=== PATIENT | female | born 1955 | race Caucasian/White ===

== ENCOUNTER 2021-11-27 17:53 | Observation (INO) | payer MEDICARE, SELFPAY ==
[2021-11-27] VITALS (32 sets, daily range): BP systolic 105–186; BP diastolic 58–105; PULSE 85–121; RESP 13–30; TEMP 36.7–36.9; O2SAT 86–100; BMI 24.5
--- NOTE | ~2021-11-27 | XR_ITS ---
EXAMINATION: XR chest 1V portable DATE: 11/29/2021 07:07 INDICATION: Dyspnea TECHNIQUE: frontal view of the chest was obtained. COMPARISON: Chest radiograph dated 11/27/2021 FINDINGS: The lungs remain clear with no focal airspace opacities, pulmonary edema, pleural effusion or pneumot horax. The cardiomediastinal silhouette is normal. Visualized bones and soft tissues are unremarkable . IMPRESSION: 1. No acute cardiopulmonary disease. Reviewed, dictated and finalized at location A.
--- NOTE | ~2021-11-27 | XR_ITS ---
EXAMINATION: XR chest 2V DATE: 11/27/2021 19:49 INDICATION: Shortness of breath TECHNIQUE: PA and lateral views of the chest are obtained. COMPARISON: 10/02/2017 FINDINGS: The lungs are free of acute opacities. No pleural effusion or pneumothorax. The cardiomedia stinal silhouette is normal. There is moderate thoracic spondylosis. IMPRESSION: 1. No acute cardiopulmonary abnormality. Reviewed, dictated and finalized at location F.
--- NOTE | 2021-11-27 18:02 | ED.SOB ---
HPI - SOB/Dyspnea General Chief Complaint: Shortness of Breath/Dyspnea Stated Complaint: ambulance Time Seen by Provider: 11/27/21 18:02 Source: patient, EMS and RN notes reviewed Mode of arrival: EMS Limitations: no limitations History of Present Illness MD elicited complaint: shortness of breath Pertinent past history: COPD Onset (ago): day(s) (1) Timing: progressively worsening Severity: moderate Exacerbating factors: exertion Relieving factors: oxygen and upright position Known history of: COPD Associated symptoms: denies other symptoms Treatment prior to arrival: oxygen and bronchodilator Related Data Home Medications Medication Instructions Recorded Confirmed albuterol sulfate 90 mcg/actuation 2 puff inhalation PRN PRN 11/27/21 11/27/21 aerosol inhaler Shortness Of Breath Or Wheezing atorvastatin 40 mg tablet 40 mg PO DAILY 11/27/21 11/27/21 fluticasone 500 mcg-salmeterol 50 1 ea inhalation DAILY 11/27/21 11/27/21 mcg/dose blistr powdr for inhalation (Advair Diskus) lisinopril 10 mg tablet 10 mg PO DAILY 11/27/21 11/27/21 Allergies Allergy/AdvReac Type Severity Reaction Status Date / Time No Known Allergies Allergy Verified 11/27/21 18:44 Review of Systems Review of Systems: All systems reviewed & are unremarkable except as noted in HPI and below Constitutional: Constitutional: Denies chills and Denies fever(s) Cardiovascular: Cardiovascular: Denies chest pain and Denies rapid heart rate Respiratory: Respiratory: Reports as per HPI Gastrointestinal: Gastrointestinal: Denies heartburn, Denies diarrhea and Denies nausea Musculoskeletal: Musculoskeletal: Denies myalgias Neurologic: Denies confusion and Denies dizziness Endocrine: Endocrine: Denies excessive sweating PMFSH Past Medical History Medical History (Updated 11/27/21 @ 20:26 by Subhash Freeman MD) COPD (chronic obstructive pulmonary disease) Hyperlipidemia Hypertension Social History Social History (Updated 11/27/21 @ 20:18 by Subhash Freeman MD) Smoking status: Former smoker Exam Const: General: no acute distress, alert and ill appearing acutely Nutritional Appearance: well nourished Orientation/consciousness: patient oriented x3 Limitations: no limitations HENMT: Head: normal to inspection Ears: external ears normal Face and sinus: normal facial exam Eyes: Conjunctivae: conjunctivae normal Pupils: Equal, round and reactive pupils present EOM: EOMs intact bilaterally Neck: Neck: normal visual inspection Resp: Effort & Inspection: able to speak in complete sentences and tachypneic Auscultation: wheezes scattered wheezes, anterior and posterior and diminished lung sounds bilateral Cardio: Rate: tachycardic Rhythm: regular rhythm GI: GI Palp: Yes Soft to palpation and No Tenderness to palpation present (GI) Auscultation: normal bowel sounds Back/Spine/Pelvis: Cervical Spine: cervical ROM normal Thoracic/Lumbar Spine: thoraco-lumbar ROM normal Skin: General skin exam: normal color Rashes: no rashes Neuro: General: patient oriented x3, moves all extremities, no focal motor deficits and CN's II-XI intact bilaterally Speech: normal speech Gait exam (Neuro): Normal gait present Extrem: General: normal to inspection and no clubbing, cyanosis or edema Psych: Mental Status: mental status grossly normal Affect: normal affect Attitude: cooperative Course Course Emergency Course: patient was given DuoNeb, Solu-Medrol. She feels much better. She was titrated oxygen down to nasal cannula 5 L but when we took off for oxygen she began satting at 87%. I discussed with her admission because she is not holding her O2 saturation she agreed to admission. I discussed the case with Yvonne Vasquez APN hospitalist who agreed with admission. Vital Signs Vital signs: Vital Signs Pulse Oximetry 100 11/27/21 17:53 Oxygen Delivery Non-Rebreather Mask 11/27/21 17:53 Oxygen Flow Rate 15 11/27/21 17:53
--- NOTE | 2021-11-27 18:09 | ECG_ITS ---
Measurements Intervals [place] Rate: 95 P: 79 IA: 168 QRS: 66 QRSD: 82 T: 67 QT: 336 QTc: 424 Interpretive Statements SINUS RHYTHM BASELINE ARTIFACT NONSPECIFIC T-WAVE ABNORMALITY BORDERLINE ECG NO PREVIOUS ECG AVAILABLE FOR COMPARISON Electronically Signed On 11-28-2021 15:00:19 CDT by Sincere Walters M.D.
[2021-11-27 18:14] LABS: Basophils Absolute Auto 0.09 K/mm3 (0.00-0.10); Eosinophils Absolute Auto 0.46 K/mm3 (0.02-0.50); Eosinophils Percent Auto 5.3 % (1.0-6.0); Hematocrit 40.1 % (35.0-42.0); Hemoglobin 13.2 g/dL (11.7-13.8); Immature Granulocyte Absolute 0.03 K/mm3 (0.00-0.00); Immature Granulocyte Percent A 0.3 % (0.0-0.0); Lymphocytes Absolute Auto 1.64 K/mm3 (1.10-4.50); Mean Corpuscular HGB Conc 32.9 g/dL (32.0-36.0); Mean Corpuscular Hemoglobin 31.4 pg (27.0-31.0); Mean Corpuscular Volume 95.2 fL (78.0-102.0); Mean Platelet Volume 10.2 fl (9.2-11.8); Monocytes Absolute Auto 1.22 K/mm3 (0.10-0.90); Monocytes Percent Auto 14.1 % (2.0-11.0); Neutrophils Absolute Auto 5.2 K/mm3 (1.7-7.2); Neutrophils Percent Auto 60.3 % (50.0-70.0); Platelet Count Result 295 K/mm3 (150-420); Red Blood Count 4.21 M/mm3 (4.20-5.40); Red Cell Distribution Width 13.6 % (11.6-14.4); White Blood Count 8.6 K/mm3 (4.8-10.8)
[2021-11-27] MEDS: methylPREDNISolone SOD SUCC 125 MG VIAL IV PUSH (18:20)
--- NOTE | 2021-11-27 18:20 | PC.NURSE ---
ERP decreased o2 to 10L
[2021-11-27 18:33] LABS: Lactic Acid Reflex 1.2 mmol/L (0.4-2.0)
[2021-11-27 18:39] LABS: Alanine Aminotransferase 19 U/L (14-59); Albumin Level 4.4 g/dL (3.4-5.0); Alkaline Phosphatase 76 U/L (46-116); Anion Gap 6 mmol/L (8-16); Aspartate Amino Transferase 21 U/L (15-37); Bilirubin,Total 0.6 mg/dL (0.00-1.00); Blood Urea Nitrogen 13 mg/dL (7-18); Carbon Dioxide 30 mmol/L (21-32); Chloride 96 mmol/L (98-108); Estimated Glomerular Filt Rate > 60; Glucose 160 mg/dL (70-99); Magnesium 1.9 mg/dL (1.8-2.4); NT Pro B Type Natriuretic Pept 64 pg/mL (0-125); Osmolality Calculated 277 mOsm/kg (285-295); Potassium 4.7 mmol/L (3.5-5.1); Sodium 132 mmol/L (136-145); Total Protein 7.8 g/dL (6.4-8.2); Troponin I 33.8 ng/L (0.00-60.4)
[2021-11-27 18:40] LABS: CRP < 0.2 mg/dL (0.0-0.9)
[2021-11-27] MEDS: Please add drug allergy info to patient profile. 1 EACH XX (18:44)
--- NOTE | 2021-11-27 18:44 | PC.NURSE ---
PCR sent to lab
--- NOTE | 2021-11-27 18:50 | PC.NURSE ---
1815 report to kenneth robles. no questions or concerns.
[2021-11-27 19:23] LABS: SARS-CoV-2 RNA PCR Negative (Negative)
[2021-11-27] MEDS: IPRATROPIUM 0.5 MG/ALBUTEROL SULFATE 2.5 MG AMPUL.NEB 3 ML INHALATION (19:43)
--- NOTE | 2021-11-27 21:25 | ADMGEN ---
This patient, Shanae Cuenca, was admitted to 2nd Floor Room 208-1. Patient oriented to hospital policies and general routines including ID bracelet, bed and alarms, visiting hours, pain management, procedures, bathroom and other care routines, personal items, smoking policy, room service/diet, and visiting hours. Information on how to activate the Rapid Response Team has been discussed. Patient are encouraged to report perceived risks to care and to ask questions if they do not understand what they are told or what they should do. Patient from w/c to bedside commode and then to chair with no assistance with no assistive device with steady gait. Denies SOB/pain/discomfort. No distress noted. Call light in reach.
[2021-11-28] VITALS (16 sets, daily range): BP systolic 101–148; BP diastolic 66–81; PULSE 72–102; RESP 16–22; TEMP 36.1–37.2; O2SAT 90–95
--- NOTE | 2021-11-28 04:00 | PC.NURSE ---
Patient appears to be sleeping by the rise and fall of her chest. No SOB/distress noted. O2 turned down to 1 lpm/nc. Call light in reach.
--- NOTE | 2021-11-28 04:50 | PC.NURSE ---
Patient to/from bedside commode independently. Patient denies SOB with exertion. No SOB noted. O2 continues @ 1 lpm/nc with SpO2 @ 94%. Call light in reach.
[2021-11-28 05:36] LABS: Basophils Absolute Auto 0.01 K/mm3 (0.00-0.10); Basophils Percent Auto 0.2 % (0.0-1.0); Eosinophils Absolute Auto 0.01 K/mm3 (0.02-0.50); Eosinophils Percent Auto 0.2 % (1.0-6.0); Hematocrit 38.2 % (35.0-42.0); Hemoglobin 12.6 g/dL (11.7-13.8); Immature Granulocyte Absolute 0.02 K/mm3 (0.00-0.00); Immature Granulocyte Percent A 0.4 % (0.0-0.0); Lymphocytes Absolute Auto 0.23 K/mm3 (1.10-4.50); Lymphocytes Percent Auto 4.3 % (18.0-42.0); Mean Corpuscular Hemoglobin 31.2 pg (27.0-31.0); Mean Corpuscular Volume 94.6 fL (78.0-102.0); Mean Platelet Volume 10.1 fl (9.2-11.8); Monocytes Absolute Auto 0.08 K/mm3 (0.10-0.90); Monocytes Percent Auto 1.5 % (2.0-11.0); Neutrophils Percent Auto 93.4 % (50.0-70.0); Platelet Count Result 255 K/mm3 (150-420); Red Blood Count 4.04 M/mm3 (4.20-5.40); Red Cell Distribution Width 13.4 % (11.6-14.4); White Blood Count 5.4 K/mm3 (4.8-10.8)
[2021-11-28 05:46] LABS: Anion Gap 3 mmol/L (8-16); Blood Urea Nitrogen 11 mg/dL (7-18); Calcium 8.9 mg/dL (8.5-10.1); Carbon Dioxide 34 mmol/L (21-32); Chloride 97 mmol/L (98-108); Estimated CRCL calculation 81 ml/min; Estimated Glomerular Filt Rate > 60; Glucose 157 mg/dL (70-99); Osmolality Calculated 280 mOsm/kg (285-295); Potassium 5.5 mmol/L (3.5-5.1); Sodium 134 mmol/L (136-145)
--- NOTE | 2021-11-28 06:05 | PC.NURSE ---
Patient continues on O2 @ 1 lpm/nc. Denies SOB and none noted. Call light in reach.
[2021-11-28] MEDS: ENOXAPARIN 40 MG/0.4 ML SYRINGE SUB-Q (08:19)
[2021-11-28] MEDS: PANTOPRAZOLE SODIUM IV 40 MG VIAL IV PUSH (08:19)
--- NOTE | 2021-11-28 09:32 | PM.IMHP ---
H&P: HPI History of Present Illness Date/Time: 11/28/21 09:32 Chief Complaint: COPD Exacerbation Narrative: This is a 66-year-old female that presented to the emergency room complaining of increased shortness of breath. Patient has a past medical history of COPD, hyperlipidemia, hypertension, smoker for 44 years and still smokes, patient is on oxygen at home. Patient states that symptoms continue to get worse she had increased and the nebulizer was not working for her. Patient denied any pain still requiring more oxygen than that as needed at home she was hypertensive on admission of 186/105 with a pulse of 121 respirations at 25 patient. Patient was placed on oxygen was weaned down to 1 L prior to seeing her patient is receiving breathing treatments as well as some IV steroids, as well as IV antibiotics. Patient has remained afebrile no nausea vomiting and/or diarrhea we will continue to wean we will keep her an additional day to monitor her to see if she continues to need oxygen we will do a walk study to confirm that she is able to go home with or without oxygen. Review of Systems Review of Systems: shortness of breath All systems reviewed & are unremarkable except as noted in HPI and below PMFSH Past Medical History Medical History COPD (chronic obstructive pulmonary disease) Hyperlipidemia Hypertension Family History Family History Other Unknown family medical history Social History Social History Years smoked: 44 Smoking status: Former smoker Tobacco type: cigarettes Alcohol intake: former Substance use: never Substance use type: does not use Spiritual care concerns: No Comments At time as signature, I have reviewed and agree with nursing past medical, social, surgical and family history. Please see nursing chart for further information. There is no relevant family history pertinent to the presenting complaint. Meds Home Medications and Allergies Home Medications Medication Instructions Recorded Confirmed Type albuterol sulfate 90 mcg/actuation 2 puff inhalation PRN PRN 11/27/21 11/27/21 History aerosol inhaler Shortness Of Breath Or Wheezing atorvastatin 40 mg tablet 40 mg PO DAILY 11/27/21 11/27/21 History fluticasone 500 mcg-salmeterol 50 1 ea inhalation DAILY 11/27/21 11/27/21 History mcg/dose blistr powdr for inhalation (Advair Diskus) lisinopril 10 mg tablet 10 mg PO DAILY 11/27/21 11/27/21 History albuterol sulfate 90 mcg/actuation 1 inh inhalation QID PRN shortness 11/29/21 Rx aerosol inhaler of breath or wheezing #8.5 grams azithromycin 250 mg tablet See Rx Instructions PO .COMPLEX #6 11/29/21 Rx (Zithromax Z-Rupesh) tabs methylprednisolone 4 mg tablets in See Rx Instructions PO .COMPLEX 11/29/21 Rx a dose pack (Medrol (Rupesh)) #21 ea Allergies Allergy/AdvReac Type Severity Reaction Status Date / Time No Known Allergies Allergy Verified 11/27/21 18:44 Vital Signs Vital Signs - 24 hr 11/27/21 18:00 11/27/21 18:07 11/27/21 18:15 Temperature 98.4 F Pulse Rate 121 H 117 H 110 H Respiratory Rate 25 H 26 H 20 Blood Pressure 186/105 H Pulse Oximetry 100 100 100 Oxygen Delivery Non-Rebreather Mask Oxygen Flow Rate 15 11/27/21 18:33 11/27/21 17:53 11/27/21 19:40 Temperature Pulse Rate 95 Respiratory Rate 20 Blood Pressure Pulse Oximetry 100 100 99 Oxygen Delivery Nasal Cannula Non-Rebreather Mask Oxygen Flow Rate 5 15 3 11/27/21 19:43 11/27/21 18:30 11/27/21 18:31 Temperature Pulse Rate 96 110 H 106 H Respiratory Rate 20 30 H 17 Blood Pressure 163/104 H Pulse Oximetry 99 99 97 Oxygen Delivery Oxygen Flow Rate 3 11/27/21 18:45 11/27/21 18:46 11/27/21 19:00 Temperature Pulse Rate 108 H 106 H 99 Respiratory Rate 23 H 21 H 15 Blood
[2021-11-28 09:52] LABS: NT Pro B Type Natriuretic Pept 718 pg/mL (0-125)
[2021-11-28] MEDS: ATORVASTATIN 40 MG TABLET PO (11:09)
[2021-11-28] MEDS: methylPREDNISolone SOD SUCC 40 MG VIAL IV PUSH ×2 (11:10→17:44)
[2021-11-28] MEDS: FUROSEMIDE INJ 40 MG/4 ML VIAL IV PUSH (11:17)
[2021-11-28] MEDS: LEVALBUTEROL NEB 1.25 MG/3 ML INHALATION ×2 (14:40→22:57)
--- NOTE | 2021-11-28 15:32 | PC.NURSE ---
Grappler attempted to wean patient from 1 L O2 n/c to 0.5 L O2 n/c. One hour later, patient SPO2 was 86%. Resumed 1L O2.
[2021-11-29] VITALS (11 sets, daily range): BP systolic 128; BP diastolic 74; PULSE 0–91; RESP 16; TEMP 36.8; O2SAT 87–94
[2021-11-29] MEDS: methylPREDNISolone SOD SUCC 40 MG VIAL IV PUSH ×2 (00:44→08:47)
[2021-11-29 07:02] LABS: Eosinophils Absolute Auto 0.01 K/mm3 (0.02-0.50); Eosinophils Percent Auto 0.1 % (1.0-6.0); Hematocrit 37.2 % (35.0-42.0); Hemoglobin 12.5 g/dL (11.7-13.8); Immature Granulocyte Absolute 0.04 K/mm3 (0.00-0.00); Immature Granulocyte Percent A 0.4 % (0.0-0.0); Lymphocytes Percent Auto 3.4 % (18.0-42.0); Mean Corpuscular HGB Conc 33.6 g/dL (32.0-36.0); Mean Corpuscular Hemoglobin 31.1 pg (27.0-31.0); Mean Corpuscular Volume 92.5 fL (78.0-102.0); Mean Platelet Volume 10.4 fl (9.2-11.8); Monocytes Absolute Auto 0.59 K/mm3 (0.10-0.90); Monocytes Percent Auto 6.6 % (2.0-11.0); Neutrophils Percent Auto 89.5 % (50.0-70.0); Platelet Count Result 278 K/mm3 (150-420); Red Blood Count 4.02 M/mm3 (4.20-5.40); Red Cell Distribution Width 13.2 % (11.6-14.4); White Blood Count 8.9 K/mm3 (4.8-10.8)
[2021-11-29 07:17] LABS: Alanine Aminotransferase 19 U/L (14-59); Albumin Level 3.7 g/dL (3.4-5.0); Alkaline Phosphatase 62 U/L (46-116); Anion Gap 4 mmol/L (8-16); Aspartate Amino Transferase 31 U/L (15-37); Bilirubin,Total 0.5 mg/dL (0.00-1.00); Blood Urea Nitrogen 12 mg/dL (7-18); Calcium 8.7 mg/dL (8.5-10.1); Carbon Dioxide 32 mmol/L (21-32); Chloride 93 mmol/L (98-108); Estimated CRCL calculation 98 ml/min; Estimated Glomerular Filt Rate > 60; Glucose 155 mg/dL (70-99); Osmolality Calculated 270 mOsm/kg (285-295); Potassium 4.1 mmol/L (3.5-5.1); Sodium 129 mmol/L (136-145); Total Protein 6.8 g/dL (6.4-8.2)
--- NOTE | 2021-11-29 07:40 | PC.NURSE ---
Patient titrated down to 0.5L O2. SPO2 at 93%.
[2021-11-29] MEDS: LEVALBUTEROL NEB 1.25 MG/3 ML INHALATION ×2 (08:32→14:40)
[2021-11-29] MEDS: ENOXAPARIN 40 MG/0.4 ML SYRINGE SUB-Q (08:47)
[2021-11-29] MEDS: PANTOPRAZOLE SODIUM IV 40 MG VIAL IV PUSH (08:47)
[2021-11-29] MEDS: lisinopriL 10 MG TABLET PO (08:48)
[2021-11-29] MEDS: ATORVASTATIN 40 MG TABLET PO (08:48)
--- NOTE | 2021-11-29 11:32 | PM.DS ---
DS: Admitting Diagnosis Discharge Date 11/29/2021 Admitting Diagnosis COPD exacerbation DS: Discharge Diagnosis Discharge Diagnosis (1) Acute exacerbation of chronic obstructive airways disease: Code(s): J44.1 - Chronic obstructive pulmonary disease with (acute) exacerbation Status: Acute Assessment and Plan: nebulizer treatment Steroids oxygen antibiotic prophalatically (2) Hyperkalemia: Code(s): E87.5 - Hyperkalemia Status: Acute Assessment and Plan: resolved (3) CHF (congestive heart failure): Code(s): I50.9 - Heart failure, unspecified Status: Acute Assessment and Plan: monitor your intake andoutput (4) Kidney disease: Code(s): N28.9 - Disorder of kidney and ureter, unspecified Status: Acute Assessment and Plan: resolved (5) Hypertension: Code(s): I10 - Essential (primary) hypertension Status: Acute Assessment and Plan: monitor blood pressure administer home medication hold lisinopril today d/t elevated Potassium DS: Summary Hospital Course Reason for hospitalization: Dyspnea, Shortness of breath , Hospital Course: This is a 66-year-old female that was admitted for COPD exacerbation requiring oxygen. While here patient received IV antibiotics, IV steroids, supplemental oxygen and nebulized treatment. Patient has continued to improve has been feeling a lot better. Patient's labs were potassium 4.1, sodium 129, BUN 12, creatinine 0.040, glucose 155, RBCs 402, WBCs 8.9, hemoglobin is 12.5, [place] is 37 platelets of 278. Patient had a walk study that identified she needed 1 L of oxygen as needed especially during activity. Patient could benefit from cardiopulmonary rehab recommendations and referral has been given patient could benefit from some home health although she has declined. Oxygen has been set up to be sent home with patient. Patient has been able to eat and drink without any difficulties no nausea vomiting and/or diarrhea shortness of breath has decreased home on oral steroids, and prophylactically treating with some oral antibiotics. Time Spent with Patient Time attestation: Total time spent providing and/or coordinating discharge services: Exam Narrative: GENERALwell-appear ing, well-nourishe d, and in no acute distress. HEAD:No rmocephalic, atrau matic. EYES: PERRL A ENT:? Nares geneva r, no rhinorrhea o r epistaxis. Mucou s membranes moist. NECK:? Supple. CH EST:? course w whe ezes to auscultati on. norespiratory distress. HEART: t achycardic? Regula r rate and rhythm. ? Normal periphera l pulses. ABDOMEN: ? Soft, nontender, nondistended, nor mal active bowel s ounds. EXTREMITIES : Normal range of motion. No edema. SKIN:? Warm, dry, no rash. NEURO: No focal deficits. A lert and oriented x3. ? DS: Data Data Completed and Pending Labs on day of discharge: Labs from last 24 hours 11/29/21 11/29/21 06:50 06:50 WBC 8.9 RBC 4.02 L Hgb 12.5 Hct 37.2 MCV 92.5 MCH 31.1 H MCHC 33.6 RDW 13.2 Plt Count 278 MPV 10.4 Immature Gran % (Auto) 0.4 H Neut % (Auto) 89.5 H Lymph % (Auto) 3.4 L [place] % (Auto) 6.6 Eos % (Auto) 0.1 L Baso % (Auto) 0.0 Lymph # (Auto) 0.30 L [place] # (Auto) 0.59 Eos # (Auto) 0.01 L Baso # (Auto) 0.00 Abs Immat Gran (auto) 0.04 H Absolute Neuts (auto) 8.0 H Absolute Nucleated RBC 0.00 Nucleated RBC % 0.0 Sodium 129 L Potassium 4.1 Chloride 93 L Carbon Dioxide 32 Anion Gap 4 L BUN 12 Creatinine 0.40 L Estim Creat Clear Calc 98 Estimated GFR > 60 Glucose 155 H Calculated Osmolality 270 L Calcium 8.7 Total Bilirubin 0.5 AST 31 ALT 19 Alkaline Phosphatase 62 Total Protein 6.8 Albumin 3.7 Discharge Plan Discharge Attending physician on discharge: Shivam Curry Consulting providers: Yvonne Vasquez
--- NOTE | 2021-11-29 11:32 | WPDPN ---
Progress Note: A&P Assessment and Plan (1) Acute exacerbation of chronic obstructive airways disease: Code(s): J44.1 - Chronic obstructive pulmonary disease with (acute) exacerbation Status: Acute Assessment and Plan: nebulizer treatment Steroids oxygen antibiotic prophalatically (2) Hyperkalemia: Code(s): E87.5 - Hyperkalemia Status: Acute Assessment and Plan: replenish with oral potassium monitor level and replenish as needed (3) CHF (congestive heart failure): Code(s): I50.9 - Heart failure, unspecified Status: Acute Assessment and Plan: heart healthy diet monitor for worsening and treat IV lasix monitor BNP (4) Kidney disease: Code(s): N28.9 - Disorder of kidney and ureter, unspecified Status: Acute Assessment and Plan: Avoid Nephrotoxic medication IVF monitor for fluid overload (5) Hypertension: Code(s): I10 - Essential (primary) hypertension Status: Acute Assessment and Plan: monitor blood pressure administer home medication hold lisinopril today d/t elevated Potassium Subjective Date/time seen: 11/29/21 11:32 Exam Narrative: GENERAL:Well-appearing, well-nourished, and in no acute distress. HEAD:Normocephalic, atraumatic. EYES: PERRLA and EOMI. ENT: Nares clear, no rhinorrhea or epistaxis. Mucous membranes moist. NECK: Supple. CHEST: Clear to auscultation. No respiratory distress. HEART: Regular rate and rhythm. No murmur heard. Normal peripheral pulses. ABDOMEN: Soft, nontender, nondistended, normal active bowel sounds. EXTREMITIES: Normal range of motion. No edema. SKIN: Warm, dry, no rash. NEURO: No focal deficits. Alert and oriented x3. Objective Data Vital Signs Vital Signs: Vital Signs - 24 hr 11/28/21 12:04 11/28/21 12:24 11/28/21 14:40 Temperature 98.9 F Pulse Rate 102 H 95 72 Respiratory Rate 18 16 Blood Pressure 113/76 Pulse Oximetry 95 90 Oxygen Delivery Nasal Cannula Oxygen Flow Rate 0.5 1 11/28/21 14:54 11/28/21 16:00 11/28/21 16:00 Temperature 98.6 F Pulse Rate 86 77 77 Respiratory Rate 16 16 Blood Pressure 101/66 Pulse Oximetry 92 Oxygen Delivery Nasal Cannula Oxygen Flow Rate 1 11/28/21 20:00 11/28/21 22:59 11/28/21 23:05 Temperature Pulse Rate 74 84 85 Respiratory Rate 22 H 19 Blood Pressure Pulse Oximetry 93 93 Oxygen Delivery Oxygen Flow Rate 1 1 11/28/21 23:52 11/28/21 23:53 11/29/21 04:00 Temperature 97 F L Pulse Rate 74 74 68 Respiratory Rate 20 Blood Pressure 119/74 Pulse Oximetry 93 Oxygen Delivery Nasal Cannula Oxygen Flow Rate 1 11/29/21 07:37 11/29/21 07:37 11/29/21 08:33 Temperature 98.3 F Pulse Rate 75 77 81 Respiratory Rate 16 16 Blood Pressure 128/74 Pulse Oximetry 93 92 Oxygen Delivery Nasal Cannula Oxygen Flow Rate 0.5 1 11/29/21 08:40 Temperature Pulse Rate 82 Respiratory Rate 16 Blood Pressure Pulse Oximetry Oxygen Delivery Oxygen Flow Rate Intake/Output Intake/Output: Intake & Output 11/26/21 11/27/21 11/28/21 11/29/21 23:59 23:59 23:59 23:59 Intake Total 2580 1530 Output Total 2450 1300 Balance 130 230 Meds/Results Medications: Active Medications Generic Name Dose Route Start Last Admin Trade Name Freq PRN Reason Stop Dose Admin Acetaminophen 650 mg 11/27/21 20:45 Acetaminophen 325 Mg Tablet PO Q4H PRN Mild Pain (1-3) or Fever Atorvastatin Calcium 40 mg 11/28/21 09:00 11/29/21 08:48 Atorvastatin 40 Mg Tablet PO 40 mg DAILY PEG Administration Enoxaparin Sodium 40 mg 11/28/21 09:00 11/29/21 08:47 Enoxaparin 40 Mg/0.4 Ml Syringe SUB-Q 40 mg DAILY PEG Administration Azithromycin 250 mg/ Dextrose 250 mls @ 250 mls/hr 11/28/21 09:00 11/29/21 09:45 IVPB Infused Q24H PEG Infusion Ibuprofen 400 mg 11/27/21 20:45 Ibuprofen 400 Mg Tablet PO
--- NOTE | 2021-11-29 11:45 | PC.NURSE ---
Telemetry discontinued on patient per [employer] OPERATOR order.
--- NOTE | 2021-11-29 11:56 | HOMEO2EVAL ---
Evaluation was performed at [facility] Home Oxygen Evaluation RC: Home Oxygen (O2) Evaluation Start: 11/29/21 10:18 Freq: ONCE Status: Active Protocol: RPE Activity Type Activity Date Activity User E-sign Co-sign Detail Recorded Client Recorded Date Recorded By Document 11/29/21 10:30 KAB [id number] 11/29/21 11:52 KAB Document 11/29/21 10:55 KAB [id number] 11/29/21 11:52 KAB Document 11/29/21 10:55 KAB [id number] 11/29/21 11:52 KAB Document 11/29/21 10:56 KAB [id number] 11/29/21 11:52 KAB 11/29/21 11/29/21 11/29/21 10:30 10:55 10:55 Home O2 Evaluation [Oxygen] -Test Phase Resting Resting Exercise -Oxygen Delivery Room Air Room Air -Oxygen Flow Rate (L/min) 1 [Pulse Oximetry] -Pulse Oximetry (90-100 %) 91 89 L 87 L [Pulse Rate] -Pulse Rate (60-100 beats/min) 83 83 91 [Evaluation] -Activity Tolerance Excellent Excellent Good -Rate of Perceived Exertion (PE) 15 Hard Query Text:Click the Protocol Button to View the RPE Scale [Exercise] -Ambulation Distance (feet) -Ambulation Distance (meters) [Comments] -Home Oxygen Evaluation Comments [Charges] -Treatment Charges O2 Evaluation - Inpatient 11/29/21 10:56 Home O2 Evaluation [Oxygen] -Test Phase Exercise -Oxygen Delivery Nasal Cannula -Oxygen Flow Rate (L/min) 1 [Pulse Oximetry] -Pulse Oximetry (90-100 %) 90 [Pulse Rate] -Pulse Rate (60-100 beats/min) 91 [Evaluation] -Activity Tolerance Excellent -Rate of Perceived Exertion (PE) Query Text:Click the Protocol Button to View the RPE Scale [Exercise] -Ambulation Distance (feet) 280 -Ambulation Distance (meters) 85.33 [Comments] -Home Oxygen Evaluation Comments Patient taken off o2. Spo2 well for copd patient. Patient walked and dropped to 87. Placed on o2 at 1 liter. Patient able to maintain spo2 on 1. [Charges] -Treatment Charges
--- NOTE | 2021-11-29 15:15 | PC.NURSE ---
Patient discharged from unit at 1515. Patient left unit in w/c accompanied by nurse and family member. Personal belongings sent home with family. IV site discontinued prior to discharge. Discharge instructions explained to patient and family. Both voiced understanding. Patient left property in private vehicle.
--- NOTE | 2021-11-30 09:57 | PCCCNOTE ---
Called pt to determine if she was active with home health or if Care Coordination needed to set home health up as ANP discharged her to home health. Pt states she does not feel she needs or wants home health. ANP Yvonne Vasquez notified. Called Cardiopulmonary rehab and made referral. CC did not speak to pt about being agreeable to cardiopulmonary rehab.
--- NOTE | 2021-12-01 11:26 | PC.NURSE ---
Pt sates she received and understood her discharge instructions. Pt has no other comments.
== END 2021-11-29 15:15 | disposition home health service (06) ==
LOC: CHSED 20:26 → CHS2ND 21:03
PROVIDERS: Nurse Practitioner Family; Admitting Provider Internal Medicine; Emergency Provider Emergency Medicine; PCP Family Medicine; Visit Provider Internal Medicine
DX: J44.1 Chronic obstructive pulmonary disease with (acute) exacerbation (principal); I11.0 Hypertensive heart disease with heart failure; I50.9 Heart failure, unspecified; E87.5 Hyperkalemia; E78.5 Hyperlipidemia, unspecified; N28.9 Disorder of kidney and ureter, unspecified; Z20.822 Contact with and (suspected) exposure to COVID-19; Z87.891 Personal history of nicotine dependence; Z99.81 Dependence on supplemental oxygen
CPT/HCPCS: 36415; 71045; 71046; 80048; 80053; 83605; 83735; 83880; 84484; 85025; 85380; 86140; 93005; 94618; 94640; 96365; 96366; 96372; 96374; 96375; 96376; 99285; A9270; C9113; C9803; G0378; J0456; J1650; J1940; J2920; J2930; J7060; U0003; U0005

== ENCOUNTER 2021-12-13 19:40 | Emergency (ER) | payer MEDICARE, SELFPAY ==
[2021-12-13] VITALS (19 sets, daily range): BP systolic 93–185; BP diastolic 60–102; PULSE 77–118; RESP 16–28; TEMP 36.6–36.8; O2SAT 89–100
--- NOTE | ~2021-12-13 | XR_ITS ---
EXAMINATION: XR chest 1V portable Exam Date/Time: 12/13/2021 20:00 CDT HISTORY: COPD SOA Comparison: 11/29/2021. RESULT: Lines, tubes, and devices: None. Lungs and pleura: Clear. Cardiomediastinal silhouette: Stable. Other: No acute osseous or upper abdominal finding. IMPRESSION: No acute cardiopulmonary process. Reviewed, dictated and finalized at location [facility].
[2021-12-13] MEDS: IPRATROPIUM 0.5 MG/ALBUTEROL SULFATE 2.5 MG AMPUL.NEB 3 ML INHALATION (19:40)
--- NOTE | 2021-12-13 19:49 | ECG_ITS ---
Measurements Intervals [place] Rate: 102 P: 87 VA: 163 QRS: 69 QRSD: 79 T: 180 QT: 310 QTc: 404 Interpretive Statements POOR DATA QUALITY SINUS TACHYCARDIA NONSPECIFIC T WAVE ABN COMPARED TO ECG 11/27/2021 19:34:11 SINUS TACHYCARDIA NOW PRESENT Electronically Signed On 12-14-2021 13:03:06 CDT by Jorge Barker M.D.
[2021-12-13] MEDS: methylPREDNISolone SOD SUCC 125 MG VIAL IV PUSH (19:56)
[2021-12-13] MEDS: ALBUTEROL SULFATE NEB 2.5 MG/3 ML INH 10 MG INHALATION (20:04)
--- NOTE | 2021-12-13 20:32 | ED.SOB ---
HPI - SOB/Dyspnea General Chief Complaint: Shortness of Breath/Dyspnea Stated Complaint: ambulance Time Seen by Provider: 12/13/21 19:42 Source: patient Mode of arrival: ambulatory Limitations: no limitations History of Present Illness HPI Narrative: PATIENT IS A 66-YEAR-OLD WHITE FEMALE WITH HISTORY OF COPD WAS ADMITTED HERE November AND DISCHARGED ON 11/29 WITH COPD EXACERBATION AND STARTED ON 1 L OF OXYGEN AT HOME. SHE WAS RECOMMEND TO PULMONARY REHAB BUT SHE REFUSED. TODAY SHE COMPLAINS OF INCREASING SHORTNESS OF BREATH WITH COUGH PRODUCTIVE OF CLEAR SPUTUM. SHE DENIES ANY CHEST PAIN HER BACK PAIN ABDOMINAL PAIN NAUSEA VOMITING FEVER OR ANY OTHER PAIN. DENIES ANY SWELLING. SHE DENIES ANY HISTORY OF VENOUS THROMBOEMBOLISM SHE DENIES SMOKING. SAID SHE QUIT 3 YEARS AGO. PATIENT TOLD THE NURSE THAT HER SHORTNESS OF BREATH ACTUALLY STARTED 2 WEEKS AGO AND SHE FINISHED HER MEDICATIONS AFTER SEEING HER PRIMARY CARE PROVIDER IN THE OFFICE. Related Data Home oxygen amount: 1 liter Home Medications Medication Instructions Recorded Confirmed albuterol sulfate 90 mcg/actuation 2 puff inhalation PRN PRN 11/27/21 12/13/21 aerosol inhaler Shortness Of Breath Or Wheezing atorvastatin 40 mg tablet 40 mg PO DAILY 11/27/21 12/13/21 fluticasone 500 mcg-salmeterol 50 1 ea inhalation DAILY 11/27/21 12/13/21 mcg/dose blistr powdr for inhalation (Advair Diskus) lisinopril 10 mg tablet 10 mg PO DAILY 11/27/21 12/13/21 Allergies Allergy/AdvReac Type Severity Reaction Status Date / Time No Known Allergies Allergy Verified 12/13/21 19:54 Review of Systems Review of Systems: All systems reviewed & are unremarkable except as noted in HPI and below Constitutional: Constitutional: Reports as per HPI and Reports no additional constitutional complaints Eyes: Eyes: Reports no additional eye complaints ENT: Reports system reviewed and no additional complaints, except as documented Cardiovascular: Cardiovascular: Reports no additional cardiovascular complaints Respiratory: Respiratory: Reports as per HPI, Reports no additional respiratory complaints, Reports cough and Reports dyspnea Comments: SHE HAS BEEN SHORT OF BREATH AT REST TODAY. Gastrointestinal: Gastrointestinal: Reports no additional gastrointestinal complaints Genitourinary: Genitourinary: Reports no additional female genitourinary complaints Musculoskeletal: Musculoskeletal: Reports no additional musculoskeletal complaints Neurologic: Reports system reviewed and no additional complaints, except as documented Psychiatric: Psychiatric: Reports no additional psychiatric complaints PMFSH Past Medical History Medical History COPD (chronic obstructive pulmonary disease) Hyperlipidemia Hypertension Family History Family History Other Unknown family medical history Social History Social History Years smoked: 44 Smoking status: Former smoker Tobacco type: cigarettes Alcohol intake: former Substance use: never Substance use type: does not use Spiritual care concerns: No Exam Narrative: PATIENT IS A WHITE ELDERLY FEMALE MODERATE RESPIRATORY DISTRESS RESPIRATORY RATE OF 28 PULSE 107 BLOOD PRESSURE 170/92 TEMP 36.6? CENTIGRADE O2 SAT ON A NON-REBREATHER OF 92%. PATIENT'S ORIGINAL OXYGEN SAT ON HOME OXYGEN WAS 80%. EYES CONJUNCTIVA PINK SCLERA NONICTERIC. OROPHARYNX IS CLEAR WITH MOIST MUCOUS MEMBRANES NECK SUPPLE WITHOUT LYMPHADENOPATHY. LUNGS SHOW DECREASED BREATH SOUNDS WITH WHEEZES THROUGHOUT. HEART TACHYCARDIC WITHOUT MURMURS GALLOPS OR RUBS ABDOMEN SOFT NONTENDER NO HEPATOSPLENOMEGALY OR MASSES NO CVA TENDERNESS NO ABDOMINAL BRUITS. BACK IS NONTENDER. EXTREMITIES NO CYANOSIS CLUBBING OR EDEMA NEUROLOGICAL MOTOR AND SENSORY GROSSLY INTACT PATIENT ALERT AND ORIENT X4
[2021-12-13 20:35] LABS: Base Excess ABG -2.8 mmol/L (0-2); HCO3 ABG 29.4 mmol/L (23-29); Oxygen Content ABG 18.3 %vol (16.0-22.0); Oxygen Saturation ABG 98.7 % (95-97); Oxyhemoglobin 97.9 % (94-100); PO2 ABG 235.7 mmHg (80-90); Total Hemoglobin 12.9 g/dL (12.0-18.0)
[2021-12-13 20:39] LABS: Device NASAL CANNULA; Modified Allen's Test Pass; Site Drawn RIGHT RADIAL
[2021-12-13 20:42] LABS: PCO2 ABG 98.6 mmHg (35-45); pH ABG 7.09 (7.35-7.45)
[2021-12-13 20:46] LABS: Hematocrit 37.3 % (35.0-42.0); Hemoglobin 11.9 g/dL (11.7-13.8); Mean Corpuscular HGB Conc 31.9 g/dL (32.0-36.0); Mean Corpuscular Hemoglobin 30.8 pg (27.0-31.0); Mean Corpuscular Volume 96.6 fL (78.0-102.0); Mean Platelet Volume 9.8 fl (9.2-11.8); Platelet Count Result 333 K/mm3 (150-420); Red Blood Count 3.86 M/mm3 (4.20-5.40); Red Cell Distribution Width 13.8 % (11.6-14.4); White Blood Count 10.8 K/mm3 (4.8-10.8)
[2021-12-13 20:55] LABS: D Dimer 0.49 mg/L (0.19-0.50); Partial Thromboplastin Time 26.4 SEC (23.90-30.70)
--- NOTE | 2021-12-13 21:00 | PC.NURSE ---
Report received from Tarah Rn, pt sitting in bed, resp distress noted c labored and tachypneic respiration present. Pt being setup for Bi-pap per RT.
[2021-12-13 21:04] LABS: Alanine Aminotransferase 17 U/L (14-59); Albumin Level 3.8 g/dL (3.4-5.0); Alkaline Phosphatase 92 U/L (46-116); Anion Gap 5 mmol/L (8-16); Aspartate Amino Transferase 25 U/L (15-37); Bilirubin,Total 0.4 mg/dL (0.00-1.00); Blood Urea Nitrogen 13 mg/dL (7-18); Calcium 8.3 mg/dL (8.5-10.1); Carbon Dioxide 31 mmol/L (21-32); Chloride 101 mmol/L (98-108); Estimated CRCL calculation 74 ml/min; Estimated Glomerular Filt Rate > 60; Glucose 225 mg/dL (70-99); Magnesium 1.8 mg/dL (1.8-2.4); Osmolality Calculated 291 mOsm/kg (285-295); Potassium 4.4 mmol/L (3.5-5.1); Sodium 137 mmol/L (136-145); Total Protein 7.1 g/dL (6.4-8.2)
[2021-12-13 21:05] LABS: NT Pro B Type Natriuretic Pept 383 pg/mL (0-125)
[2021-12-13 21:07] LABS: Troponin I 89.7 ng/L (0.00-60.4)
[2021-12-13 21:26] LABS: Influenza A QL RT-PCR Negative (Negative); Influenza B QL RT-PCR Negative (Negative); SARS-CoV-2 RNA PCR Negative (Negative)
--- NOTE | 2021-12-13 21:31 | PC.NURSE ---
RT at pt bedside monitoring bipap and settings, pt resting more comfortably and pt breathing easier.
--- NOTE | 2021-12-13 21:48 | PC.NURSE ---
Pt sleeping and RR even and nonlabored at this time, on bipap and tiolerating well c RT at side to monitor.
--- NOTE | 2021-12-13 23:00 | PC.NURSE ---
Pt sleeping, awakens easily, POC for transfer explained to pt. She is agreeable to transfer, call placed to [facility] for possible transfer. Awaiting call back.
--- NOTE | 2021-12-13 23:19 | PC.NURSE ---
Call back from Dr Das, spoke c Dr Maldonado, orders received.
[2021-12-13 23:34] LABS: Base Excess ABG 1.3 mmol/L (0-2); HCO3 ABG 28.3 mmol/L (23-29); Oxygen Saturation ABG 97.3 % (95-97); Oxyhemoglobin 96.7 % (94-100); PCO2 ABG 55.7 mmHg (35-45); PO2 ABG 109.3 mmHg (80-90); Total Hemoglobin 12.4 g/dL (12.0-18.0); pH ABG 7.32 (7.35-7.45)
[2021-12-13 23:37] LABS: Device BIPAP; Expiratory Pressure 6 cmH2O; Inspiratory Pressure 18 cmH2O; Modified Allen's Test Pass; Site Drawn RIGHT RADIAL
--- NOTE | 2021-12-13 23:40 | PC.NURSE ---
Pt assisted to BSC, urinated s difficulty, VSS, back to bed and placed back on bipap. Pt tolerating well.
--- NOTE | 2021-12-13 23:48 | PC.NURSE ---
Call back to Dr Raymond, Dr Maldonado gave updated ABG's. Dr Raymond accepts for transfer, will await call back for bed placement.
[2021-12-14] VITALS: PULSE 79; RESP 26; O2SAT 98
[2021-12-14 00:01] VITALS: BP 122/76; PULSE 81; RESP 18; O2SAT 100
[2021-12-14 00:15] VITALS: PULSE 74; RESP 17; O2SAT 93
--- NOTE | 2021-12-14 00:15 | PC.NURSE ---
Call back from Mary, bed assignment given, paperwork signed for transfer.
[2021-12-14 00:16] VITALS: BP 104/72; PULSE 73; RESP 17; TEMP 36.6; O2SAT 93
--- NOTE | 2021-12-14 00:37 | PC.NURSE ---
Call placed to IMU for report, awaiting nurse to call back to give report. Pt sleeping and resting comfortably, RR even and nonlabored, VSS.
[2021-12-14 00:46] LABS: Troponin I 1328.5 ng/L (0.00-60.4)
[2021-12-14] MEDS: ASPIRIN 81 MG CHEWABLE TABLET 324 MG PO (00:54)
[2021-12-14] MEDS: ENOXAPARIN 100 MG/ML SYRINGE 70 MG SUB-Q (00:54)
[2021-12-14 01:04] VITALS: BP 107/90; PULSE 79; RESP 20; TEMP 36.6; O2SAT 97
[2021-12-14 01:05] VITALS: O2SAT 97
--- NOTE | 2021-12-14 01:33 | PC.NURSE ---
Report given to SAAS and pt. loaded s difficulty. Pt resting comfortably and reports she is feeling much better, VSS.
== END 2021-12-14 01:35 | disposition short-term general hospital (02) ==
PROVIDERS: Emergency Provider Emergency Medicine; PCP Family Medicine
DX: J44.1 Chronic obstructive pulmonary disease with (acute) exacerbation (principal); I21.4 Non-ST elevation (NSTEMI) myocardial infarction; E78.5 Hyperlipidemia, unspecified; I10 Essential (primary) hypertension; Z87.891 Personal history of nicotine dependence
CPT/HCPCS: 36415; 36600; 71045; 80053; 82805; 83735; 83880; 84484; 85027; 85380; 85610; 85730; 87040; 87502; 93005; 94640; 96365; 96372; 96375; 99285; A9270; J0696; J1650; J2930; U0003; U0005

== ENCOUNTER 2021-12-14 04:41 | Inpatient (IN) | payer MEDICARE, SELFPAY ==
[2021-12-14] VITALS (21 sets, daily range): BP systolic 121–145; BP diastolic 68–89; PULSE 69–93; RESP 16–24; TEMP 36.4–37.2; O2SAT 91–100; BMI 25.9
--- NOTE | 2021-12-14 | ECHO_ITS ---
Patient Info Name: Shanae Cuenca Age: 66 years : 1955 Gender: Female Ht: 64 in Wt: 150 lbs BSA: 1.77 m2 HR: 85 bpm BP: 138 / 78 mmHg Heart Rhythm: Sinus Rhythm Technical Quality: Fair Exam Date: 12/14/2021 2:33 PM Exam Location: [facility] Patient Status: Inpatient Admit Date: 12/14/2021 Staff Ordering Physician: Jorge Barker MD Retail Salesman: Megan King RDCS Attending Provider: Domingo Jose M.A., MD Referring Physician: Lucero HART; Exam Type: CA echo doppler color flow Study Info Indications - COPD EXACERBATION/ELEVATED TROPONIN Complete two-dimensional, color flow and Doppler transthoracic echocardiogram is performed. Summary 1. Complete two-dimensional, color flow and Doppler transthoracic echocardiogram is performed. 2. Left ventricular chamber dimension is normal. 3. Left ventricular systolic function is normal, estimated at 55-60%. 4. No regional wall motion abnormalities are seen. 5. The aortic valve is normal. 6. The mitral valve has normal leaflets. Left Ventricle Left ventricular chamber dimension is normal. Left ventricular systolic function is normal, estimated at 55-60%. The left ventricular diastolic function is grade I diastolic dysfunction. No regional wall motion abnormalities are seen. Right Ventricle Right ventricular chamber dimension is normal. Left Atria Left atrial chamber dimension is normal. Right Atria Right atrial chamber dimension is normal. Aortic Valve The aortic valve is normal. Pulmonic Valve The pulmonic valve is normal. Mitral Valve The mitral valve has normal leaflets. Tricuspid Valve The tricuspid valve leaflets are normal. There is mild tricuspid valve regurgitation. Pericardium/Pleural The pericardium appears normal. Aorta The aortic root size at the sinus of Valsalva is normal. Left Ventricular Outflow Tract Name Value Normal LVOT 2D LVOT Diameter 2.0 cm LVOT Doppler LVOT Peak Gradient 6 mmHg LVOT Mean Gradient 4 mmHg LVOT VTI 27 cm LVOT VTI/AV VTI Ratio 0.8 LVOT Stroke Volume 86 ml LVOT CO 7.0 l/min LVOT CI 3.9 l/min/m2 Pulmonic Valve Name Value Normal RVOT Doppler RVOT Peak Gradient 3 mmHg PV Doppler PV Peak Gradient 4 mmHg Mitral Valve Name Value Normal MV Doppler
--- NOTE | ~2021-12-14 | CT_ITS ---
EXAMINATION: CTA chest PE protocol DATE: 12/14/2021 09:36 INDICATION: Shortness of breath TECHNIQUE: Computed tomography angiography (CTA) of the chest was performed with 100 mL Omnipaque-350 intravenous contrast timed to evaluate the pulmonary arteries. Coronal maximum intensity projection 3D-reconstructions were created by the technologist. Automated exposure control and iterative reconst ruction technique were employed. Exam dose: 348.49 mGy-cm total exam DLP. COMPARISON: 12/13/2021 portable AP chest FINDINGS: There is an approximately 6.5 mm focal irregular opacity with some calcification in the lat eral aspect of the left upper lobe (series 4 images 34, 35). This may be a partially calcified pulmon anamaria granuloma. Small pulmonary mass lesion is not excluded. Follow-up CT imaging in 6 months is recom mended. There is mild emphysema. There are scattered predominantly peripheral pinpoint pulmonary opacities, b est demonstrated in the right upper lobe, most likely benign. There is mild bilateral lower lobe pred ominantly dependent atelectasis. No pulmonary consolidation. There is diagnostic contrast enhancement of the pulmonary arteries and no evidence of pulmonary embol ism. No thoracic aortic aneurysm or dissection. Normal heart size. Coronary artery calcifications. No cedric cardial or pleural effusion. Small sliding hiatal hernia. IMPRESSION: Approximately 6.5 mm indeterminate irregular opacity, left upper lobe, with focal calcif ication; follow-up CT thorax imaging in 6 months is recommended No evidence of pulmonary embolism Mild emphysema Minimal primarily dependent bilateral lobe atelectasis Dr. Peters telephoned the report to [facility] nurse Justin, with emphasis upon the necessity for the patient to have a follow up CT thorax in 6 months to evaluate the left upper lobe opacity. Reviewed, dictated and finalized at Location [facility]. Reviewed, dictated and finalized at location A. IMPRESSION: Approximately 6.5 mm indeterminate irregular opacity, left upper l obe, with focal calcification; follow-up CT thorax imaging in 6 months is recom mended No evidence of pulmonary embolism Mild emphysema Minimal primarily dependent bilateral lobe atelectasis Dr. Peters telephoned the report to IMU nurse Margoth, with emphasis upon the nec essity for the patient to have a follow up CT thorax in 6 months to evaluate th e left upper lobe opacity.
--- NOTE | ~2021-12-14 | NM_ITS ---
EXAMINATION: NM aditya stress w perfusion DATE: 12/15/2021 12:53 INDICATION: Elevated troponin TECHNIQUE: Rest images were obtained following intravenous administration of 10.0 mCi Tc99m tetrofosm in (Myoview). The patient was infused intravenously with Lexiscan (Regadenoson). Then, 31.77 mCi Tc99 m tetrofosmin (Myoview) was administered intravenously, and stress images were obtained. Data was rec onstructed into short axis and horizontal and vertical long axis SPECT images. Gated SPECT images wer e also obtained. COMPARISON: None. FINDINGS: There is no definite reversible or fixed perfusion abnormality to suggest ischemia or infar ction. There is normal left ventricular chamber size, wall motion and ejection fraction. Left ventr icular ejection fraction measures 64%. IMPRESSION: 1. Normal myocardial perfusion at rest and during stress. 2. Left ventricular ejection fraction measuring 64%. Reviewed, dictated and finalized at location B.
--- NOTE | 2021-12-14 02:26 | PM.IMHP ---
H&P: HPI History of Present Illness Date/Time: 12/14/21 02:26 Chief Complaint: 89 years old female with past medical history of hypertension COPD presented to the hospital with shortness of breath worsening with activity severe specially for the past few days associated with cough and wheezing patient denies fever or chill chest pain at the ER patient was found to have acute hypoxemic hypercapnic respiratory failure pH was 7 CO2 was 98 patient was started on BiPAP nebulizer treatment steroid antibiotics chest x-ray was negative patient condition improved on BiPAP patient currently on 2 L of oxygen shortness of breath has significantly improved Patient also found to have mildly elevated troponin EKGs shows T-wave inversion in lateral leads cardiology was consulted Review of Systems Review of Systems: Twelve system review was done negative except above [facility] Past Medical History Medical History COPD (chronic obstructive pulmonary disease) Hyperlipidemia Hypertension Family History Family History Other Unknown family medical history Social History Social History Years smoked: 44 Smoking status: Former smoker Tobacco type: cigarettes Alcohol intake: former Substance use: never Substance use type: does not use Spiritual care concerns: No Meds Home Medications and Allergies Home Medications Medication Instructions Recorded Confirmed Type albuterol sulfate 90 mcg/actuation 2 puff inhalation PRN PRN 11/27/21 12/13/21 History aerosol inhaler Shortness Of Breath Or Wheezing atorvastatin 40 mg tablet 40 mg PO DAILY 11/27/21 12/13/21 History fluticasone 500 mcg-salmeterol 50 1 ea inhalation DAILY 11/27/21 12/13/21 History mcg/dose blistr powdr for inhalation (Advair Diskus) lisinopril 10 mg tablet 10 mg PO DAILY 11/27/21 12/13/21 History albuterol sulfate 90 mcg/actuation 1 inh inhalation QID PRN shortness 11/29/21 12/13/21 Rx aerosol inhaler of breath or wheezing #8.5 grams Allergies Allergy/AdvReac Type Severity Reaction Status Date / Time No Known Allergies Allergy Verified 12/13/21 19:54 Exam Narrative: GENERAL: Well appearing, well-nourished, non-toxic, in no acute distress. HEAD: Normocephalic, atraumatic. NECK: Supple. No adenopathy, no masses. RESPIRATORY: Bilateral wheeze. CARDIOVASCULAR: Regular rate and rhythm without murmurs, rubs, or gallops. Peripheral pulses 2+ and equal bilaterally. ABDOMINAL: Soft, nontender, nondistended, no hepatosplenomegaly. Normoactive BS. MUSCULOSKELETAL: Mild lower extremity edema SKIN: Positive bruises from fall to the left leg NEURO: A&O X3. Speech clear. Cranial nerves II-XII grossly intact. Steady gait. No ataxic movements. PSYCHIATRIC: Appropriate mood and affect. Normal interaction. Assessment and Plan Assessment and plan (1) Hypertension: Code(s): I10 - Essential (primary) hypertension Status: Acute Assessment and Plan: On admission patient had hypertensive urgency resolved Pending home medication (2) CHF (congestive heart failure): Code(s): I50.9 - Heart failure, unspecified Status: Acute Assessment and Plan: Probably diastolic stable BMP chest x-ray clear no evidence of pulmonary edema (3) Acute exacerbation of chronic obstructive airways disease: Code(s): J44.1 - Chronic obstructive pulmonary disease with (acute) exacerbation Status: Acute Assessment and Plan: Nebulizer treatment IV Solu-Medrol IV Rocephin (4) Acute hypercapnic respiratory failure: Code(s): J96.02 - Acute respiratory failure with hypercapnia Status: Acute Assessment and Plan: Secondary to COPD exacerbation Associated with hypoxia Status post BiPAP Nebulizer treatment steroid antibiotics (5) Elevated troponin:
[2021-12-14 02:49] LABS: Alveolar/Arterial O2 Gradient 60.2 mmHg; Carboxyhemoglobin 0.3 % THb (0-2.0); Fractional Inspired Oxygen 28 %; HCO3 ABG 25.4 mEq/l (22.0-26.0); Methemoglobin ABG 0.1 %THb (0-1.5); Oxygen Content ABG 17.1 %vol (16.0-22.0); Oxygen Saturation ABG 96.5 % (95.0-100.0); Oxyhemoglobin 95.3 % THb (90.0-100.0); PO2 ABG 87.5 mmHg (80.0-100.0); PO2 FiO2 Ratio Arterial Blood 3.13 %; Reduced Hemoglobin 4.3 %THb (0-5.0); Total Hemoglobin 12.7 g/dL (12.0-18.0); pH ABG 7.379 (7.350-7.450)
--- NOTE | 2021-12-14 02:49 | ADMGEN ---
This patient, Shanae Cuenca, was admitted to IMU Room 212-01 as a direct admit from [facility] on 12/14/21 at 0209. Patient/family oriented to hospital policies and general routines including ID bracelet, bed and alarms, visiting hours, pain management, procedures, bathroom and other care routines, personal items, smoking policy, room service/diet, and visiting hours. Information on how to activate the Rapid Response Team has been discussed. Patient/Family are encouraged to report perceived risks to care and to ask questions if they do not understand what they are told or what they should do.
[2021-12-14 02:52] LABS: Device NASAL CANNULA; Modified Allen's Test Pass; Site Drawn RIGHT RADIAL
[2021-12-14] MEDS: SODIUM CHLORIDE 0.9% IV 1,000 ML 75 ML IV CONT (03:57)
[2021-12-14 06:13] LABS: Cholesterol 174 mg/dL (0-200); Triglycerides 52 mg/dL (<150)
[2021-12-14 06:17] LABS: HDL Direct 127 mg/dL; LDL Cholesterol Direct < 30 mg/dL
[2021-12-14] MEDS: methylPREDNISolone SOD SUCC 40 MG VIAL IV PUSH ×3 (06:50→21:44)
[2021-12-14] MEDS: ATORVASTATIN 40 MG TABLET PO (08:30)
[2021-12-14] MEDS: guaiFENesin 12 HR 600 MG TABCR PO ×2 (08:30→20:48)
[2021-12-14] MEDS: ENOXAPARIN 40 MG/0.4 ML SYRINGE SUB-Q (08:30)
[2021-12-14] MEDS: ALBUTEROL SULFATE NEB 2.5 MG/3 ML INH INHALATION ×3 (09:02→21:14)
[2021-12-14] MEDS: FLUTICASONE/SALMETEROL 230-21 MCG INHALER 1 PUFF 2 PUFF INHALATION ×2 (09:02→21:15)
[2021-12-14] MEDS: IPRATROPIUM BR 0.02% INH SOLN 0.5 MG/2.5 ML VIAL INHALATION ×3 (09:02→21:15)
[2021-12-14] MEDS: ASPIRIN 81 MG ENTERIC TABLET PO (09:50)
--- NOTE | 2021-12-14 11:32 | PM.CNCAR ---
Assessment and Plan Assessment and plan (1) Elevated troponin: Code(s): R77.8 - Other specified abnormalities of plasma proteins Status: Acute Plan This is a 66-year-old woman who appears to have significant COPD who presented yesterday to the emergency room in [place] with significant COPD exacerbation. She did have relatively severe acute respiratory acidosis. No active chest pain symptoms troponin levels were sampled in that setting and we are moderately elevated. One would presume this is a so-called type 2 infarction with functional ischemia related to hypoxia/respiratory acidosis. She describes having had a coronary angiogram done within the last 5 or 6 years up in [place] and it sounds like she was told of angiographically mild disease for which aspirin and atorvastatin was recommended/prescribed. I am going to recommend echocardiogram today to determine if there are any ischemic wall motion abnormalities. We will likely proceed with a Lexiscan nuclear stress test tomorrow if the stress echo does not show any wall motion abnormalities. At this point she is not having any active ischemic symptoms that would prompt me to make the decision to return her to the cardiac catheterization technician here at [facility]. That of course could be reconsidered if the echocardiogram demonstrates ischemic findings. Jorge Barker MD [facility] History of Present Illness History of Present Illness Consult date/time: 12/14/21 11:32 Reason For Visit: COPD Exacerbation Narrative: This is a 66-year-old woman I am seeing at the request of the hospitalist because of elevated troponin level. She is unknown to me prior to this consultation. She seems to be a good historian. She states that she is known to have significant COPD with home oxygen requirements. She has been having worsening shortness of breath for several days at home it became severe yesterday she had her call an ambulance and she was brought to the emergency room in [place]. When she was evaluated there her blood gases were remarkable for a severe respiratory acidosis and her troponin levels were elevated. Her electrocardiogram showed sinus rhythm with some nonspecific ST and T-wave changes. She was transferred here for further evaluation and management. Her troponin levels here are also moderately elevated the pattern is relatively flat. She feels comfortable this morning and denies any active complaints she has been treated with bronchodilators and steroids since admission to the hospital. With respect to heart disease she says that she was found to have mild coronary artery disease approximately 5 or 6 years ago when her physician referred her for some reason to a sr account executive up in [place]. She can not remember the reason for the referral but she does remember having a coronary angiogram done in being told of mild coronary disease. Aspirin and atorvastatin was recommended for this. She has not followed with a sr account executive since that evaluation. Once again she is not reporting any symptoms of chest pain pressure or heaviness she not experiencing orthopnea PND or accumulating edema. Review of Systems Constitutional: Constitutional: Reports lethargy Eyes: Eyes: Reports no additional eye complaints ENT: Reports system reviewed and no additional complaints, except as documented Cardiovascular: Cardiovascular: Reports no additional cardiovascular complaints Respiratory: Respiratory: Reports cough and Reports dyspnea Gastrointestinal: Gastrointestinal: Reports no additional gastrointestinal complaints Musculoskeletal: Musculoskeletal: Reports no additional musculoskeletal complaints Integumentary/Breasts: Skin/Breast: Reports system reviewed and no additional complaints, except as docu Neurologic: Reports system reviewed and no additional complaints, except as documented Endocrine: Endocrine: Reports no additional endocrine complaints Hematologic/Lymphatic: Hematologic/Lymphat
--- NOTE | 2021-12-14 14:44 | PM.IMPN ---
Progress Note: A&P Assessment and Plan (1) Acute hypercapnic respiratory failure: Code(s): J96.02 - Acute respiratory failure with hypercapnia Status: Acute Assessment and Plan: Patient presents to the ED with complaints of SOB and productive cough. She was noted to be in moderate respriatory distress with hypoxia. ABG 7.09/99/235 on 7L NC. CXR was clear. Influenza and COVID were negative. She was treated with Solu-medrol, Nebs and abx. BiPAP started and repeat ABG showing 7.32/56/109 on bipap. Respiratory failure secondary to COPD exacerbation. She was transferred to [place]. ABG here was normal on 2L. CTA chest showing no PE but does show a 6.5mm EDITH mass, mild emphysema and atelectasis. Continue steroids, nebs and abx. Apnea link tonight (2) Elevated troponin: Code(s): R77.8 - Other specified abnormalities of plasma proteins Status: Acute Assessment and Plan: Troponin elevated and climbed to 2.4. EKG showing no acute findings. Most likely NSTEMI type 2 secondary to demand ischemia from the severe respiratory failure. Continue ASA. Cardiology consulted and appreciate their input. Echo ordered. Plan for Lexiscan tomorrow if Echo okay. (3) Acute exacerbation of chronic obstructive airways disease: Code(s): J44.1 - Chronic obstructive pulmonary disease with (acute) exacerbation Status: Acute Assessment and Plan: As above. Continue steroids, nebulizer treatments and antibiotics. Will changed to Levaquin (4) Hypertension: Code(s): I10 - Essential (primary) hypertension Status: Acute Assessment and Plan: Patient's blood pressure was reviewed on 12/14 Blood pressure remains well controlled. Will continue current medications. (5) CHF (congestive heart failure): Code(s): I50.9 - Heart failure, unspecified Status: Acute Assessment and Plan: Patient denies any history of heart failure. Chest x-ray is clear. (6) Tobacco abuse: Code(s): Z72.0 - Tobacco use Status: Acute Assessment and Plan: Patient quit tobacco 2 years ago but continues to smoke periodically. She was educated about the benefits of smoking cessation. (7) Lung nodule: Code(s): R91.1 - Solitary pulmonary nodule Status: Acute Assessment and Plan: As above. CT scan showng 6.5mm nodule in the EDITH. Plan for further surveillance as outpatient. Subjective Date/time seen: 12/14/21 14:44 Interval history: 66yo female with HTN, COPD here for SOB. Patient denies any history of CHF or coronary disease. She does have COPD and was just discharged recently for COPD exacerbation. She has been having wheezing coughing. She quit tobacco 2 years ago but still smokes on occasion. She denies any chest pain. She states that she had a CT scan of her chest a few years ago at a different facility and this also showed a small lung mass that is being followed. Exam Narrative: AF 98.4 136/68 82 16 95% 2L Gen - NARD Chest - few end expiratory rhonchi anteriorly o/w clear bilaterally, nml RR, good AE CV - RRR S1/S2. Tele showing no significant dysrhythmias Abd - Soft, NT/ND, Positive BS Ext - No pedal edema Psych - Nml mood and affect Skin - Warm and dry. bruising and dried eschar noted to the left lower leg with bruising extending into the ankle/foot. no pain to palpation. Objective Data Vital Signs Vital Signs: Vital Signs - 24 hr 12/14/21 02:14 12/14/21 02:14 12/14/21 03:35 Temperature 98.9 F Pulse Rate 88 88 Respiratory Rate 24 H 24 H Blood Pressure 124/84 Pulse Oximetry 97 97 99 Oxygen Delivery Nasal Cannula Nasal Cannula Oxygen Flow Rate 2 2 12/14/21 02:29 12/14/21 04:00 12/14/21 04:00 Temperature Pulse Rate 84 81 81 Respiratory Rate 20 Blood Pressure Pulse Oximetry 98 Oxygen Delivery Nasal Cannula Oxygen Flow Rate 2 12/14/21 05:00 12/14/21 08:00 12/14/21 09:00 T
[2021-12-14] MEDS: levoFLOXacin 750 MG TABLET PO (17:25)
[2021-12-14 17:38] LABS: Glucose Point of Care 167 mg/dl (65-105)
[2021-12-14 20:53] LABS: Glucose Point of Care 149 mg/dl (65-105)
--- NOTE | 2021-12-14 21:23 | PCRCNOTE ---
pt is refusing apnea link study on 12/14. when RT stated that the MD would like to do a sleep study, pt stated what? no! i have never had any trouble with my sleep, i doubt my insurance will cover this, i am supposed to be relaxing and this is too much.
[2021-12-15] VITALS (17 sets, daily range): BP systolic 118–141; BP diastolic 65–77; PULSE 69–102; RESP 16–20; TEMP 36.1–36.8; O2SAT 69–97
--- NOTE | 2021-12-15 | EST_ITS ---
Patient Info Name: Shanae Cuenca Age: 66 years : 1955 Gender: Female Ht: 64 in Wt: 150 lbs BSA: 1.77 m2 Exam Date: 12/15/2021 11:54 AM Exam Location: [facility] Stress Patient Status: Inpatient Admit Date: 12/14/2021 Staff Ordering Physician: Jorge Barker MD Attending Provider: Domingo Jose M.A., MD Exercise Technologist: Megan King RDCS Exercise Physician: Rocio Yan MD Exam Type: CA stress aditya w NM Study Info Indications - TROPONINS A regadenoson stress test was performed. Summary 1. Please correlate with nuclear medicine images, reported separately. 2. No abnormal ST-T wave changes with lexiscan. Protocol: Lexiscan Stress ECG Details Stage: REST Duration (min): 0 min : 58 sec HR (bpm): 70 SBP (mmHg): 134 DBP (mmHg): 76 Stage: REST Duration (min): 7 min : 56 sec HR (bpm): 70 SBP (mmHg): 134 DBP (mmHg): 76 Stage: STAGE 1 Duration (min): 0 min : 59 sec HR (bpm): 101 SBP (mmHg): 125 DBP (mmHg): 63 Stage: RECOVERY Duration (min): 1 min : 0 sec HR (bpm): 96 SBP (mmHg): 125 DBP (mmHg): 63 Stage: RECOVERY Duration (min): 2 min : 0 sec HR (bpm): 94 SBP (mmHg): 125 DBP (mmHg): 63 Stage: RECOVERY Duration (min): 3 min : 0 sec HR (bpm): 85 SBP (mmHg): 124 DBP (mmHg): 64 Stage: RECOVERY Duration (min): 3 min : 47 sec HR (bpm): 90 SBP (mmHg): 124 DBP (mmHg): 64 Rest HR: 70 bpm Peak HR: 101 bpm Rest Sys BP: 134 mmHg Peak Sys BP: 125 mmHg Max Pred HR: 155 bpm % Max Pred HR: 65 % Target HR: 132 bpm Max RPP: 12,625 bpm*mmHg Total Time: 1 min : 0 sec Rest Black BP: 76 mmHg Peak Black BP: 63 mmHg Total Dose: 0.4 mg Resting ECG Sinus rhythm. T-wave inversions in the inferolateral leads. Stress ECG Sinus tachycardia. No ST-T wave changes diagnostic of ischemia. Arrhythmias None. Report Signatures
[2021-12-15] MEDS: ALBUTEROL SULFATE NEB 2.5 MG/3 ML INH INHALATION ×3 (02:54→14:50)
[2021-12-15] MEDS: IPRATROPIUM BR 0.02% INH SOLN 0.5 MG/2.5 ML VIAL INHALATION ×3 (02:55→14:50)
[2021-12-15 05:34] LABS: Eosinophils Percent Auto 0.1 % (0-4.4); Hemoglobin 11.2 g/dL (12.0-15.0); Immature Granulocyte Absolute 0.05 K/mm3 (0.00-0.031); Immature Granulocyte Percent A 0.6 % (0-0.5); Lymphocytes Absolute Auto 0.17 K/mm3 (0.9-3.2); Mean Corpuscular HGB Conc 32.9 g/dl (32-36); Mean Corpuscular Hemoglobin 31.1 pg (26-34); Mean Corpuscular Volume 94.4 fl (80-100); Mean Platelet Volume 10.2 fl (7.4-10.4); Monocytes Absolute Auto 0.7 K/mm3 (0.1-0.6); Monocytes Percent Auto 8.3 % (2.6-8.5); Neutrophils Absolute Auto 7.9 K/mm3 (1.3-6.7); Neutrophils Percent Auto 89.1 % (45.5-73.1); Platelet Count Result 281 k/mm3 (150-375); Red Cell Distribution Width 13.9 % (11.5-14.5); White Blood Count 8.9 K/mm3 (4.5-10.0)
[2021-12-15 05:38] LABS: Lymphocytes Percent Auto 1.9 % (18.3-44.2)
[2021-12-15] MEDS: methylPREDNISolone SOD SUCC 40 MG VIAL IV PUSH ×2 (05:44→13:10)
[2021-12-15 05:46] LABS: Alanine Aminotransferase 17 U/L (6-35); Albumin Level 4.1 g/dL (3.5-5.1); Alkaline Phosphatase 63 U/L (38-126); Anion Gap 13 mmol/L (8-16); Aspartate Amino Transferase 67 U/L (14-36); Bilirubin,Total 0.4 mg/dL (0.2-1.3); Blood Urea Nitrogen 13 mg/dL (7-17); Calcium 8.6 mg/dL (8.4-10.2); Carbon Dioxide 26 mmol/L (22-30); Chloride 91 mmol/L (98-107); Estimated CRCL calculation 98 ml/min; Estimated Glomerular Filt Rate > 60; Glucose 134 mg/dL (65-110); Sodium 130 mmol/L (137-145)
[2021-12-15 05:54] LABS: Hemoglobin A1C 6.1 % (<5.7)
[2021-12-15 08:29] LABS: Glucose Point of Care 134 mg/dl (65-105)
[2021-12-15] MEDS: FLUTICASONE/SALMETEROL 230-21 MCG INHALER 1 PUFF 2 PUFF INHALATION (08:29)
[2021-12-15] MEDS: levoFLOXacin 750 MG TABLET PO (13:10)
[2021-12-15] MEDS: ATORVASTATIN 40 MG TABLET PO (13:10)
[2021-12-15] MEDS: guaiFENesin 12 HR 600 MG TABCR PO (13:10)
[2021-12-15] MEDS: ASPIRIN 81 MG ENTERIC TABLET PO (13:10)
[2021-12-15] MEDS: ENOXAPARIN 40 MG/0.4 ML SYRINGE SUB-Q (13:10)
[2021-12-15 13:26] LABS: Glucose Point of Care 111 mg/dl (65-105)
--- NOTE | 2021-12-15 16:15 | PM.PNCARD ---
Progress Note: A&P Assessment and Plan (1) Elevated troponin: Code(s): R77.8 - Other specified abnormalities of plasma proteins Status: Acute Assessment and Plan: Elevated troponins, no segmental wall motion abnormalities, EKG changes. Lexiscan stress test negative for ischemia Elevated troponins secondary to nonischemic myocardial injury due to hypoxia, acidosis, work of breathing etc. No further cardiac evaluation needed Continue aspirin and atorvastatin Okay for discharge when okay with hospitalists (2) Acute exacerbation of chronic obstructive airways disease: Code(s): J44.1 - Chronic obstructive pulmonary disease with (acute) exacerbation Status: Acute Assessment and Plan: Acute on chronic COPD with hypoxic respiratory failure. Much improved. Subjective Date/time seen: Follow-up for elevated troponins (2.4), shortness of breath, COPD exacerbation. Date of service 12/15/21 16:15: Patient feeling much better, hopes to go home today. Still on 2 L O2, but she is on home O2 as well.. Echo showed normal LV function with no segmental wall motion abnormalities. Lexiscan showed no defects, EF 64% Review of Systems Review of Systems: No chest pain, breathing is much better, no stomach problems, dizziness, edema. Exam Const: General: cooperative, healthy appearing and comfortable; No confusion Orientation/consciousness: oriented to person, patient oriented x3 and No confusion HENMT: Mouth: Yes moist mucous membranes Eyes: EOM: EOMs intact bilaterally Neck: Neck: supple and no JVD Resp: Effort & Inspection: normal respiratory effort Auscultation: clear to auscultation bilaterally Cardio: Rate: regular rate Rhythm: regular rhythm Heart sounds: no murmurs GI: Inspection: normal to inspection GI Palp: No abdominal tenderness Skin: General skin exam: no rashes or lesions noted Neuro: General: oriented to person, patient oriented x3 and No confusion Extrem: Right lower extremity: no edema Left lower extremity: no edema Psych: Appearance: grossly normal Mental Status: mental status grossly normal Objective Data Vital Signs Vital Signs: Vital Signs - 24 hr 12/14/21 17:33 12/14/21 19:21 12/14/21 21:17 Temperature 98.5 F Pulse Rate 93 80 78 Respiratory Rate 16 16 Blood Pressure 134/77 Pulse Oximetry 91 Oxygen Delivery Oxygen Flow Rate 12/14/21 21:18 12/14/21 21:29 12/14/21 20:00 Temperature Pulse Rate 81 77 Respiratory Rate 16 Blood Pressure Pulse Oximetry 98 Oxygen Delivery Nasal Cannula Oxygen Flow Rate 1 12/14/21 20:00 12/14/21 23:52 12/15/21 00:00 Temperature 97.6 F Pulse Rate 79 70 Respiratory Rate 20 Blood Pressure 145/89 H Pulse Oximetry 96 95 Oxygen Delivery Nasal Cannula Oxygen Flow Rate 2 12/15/21 02:58 12/15/21 03:07 12/15/21 04:00 Temperature Pulse Rate 77 82 102 H Respiratory Rate 16 16 Blood Pressure Pulse Oximetry Oxygen Delivery Oxygen Flow Rate 12/15/21 04:00 12/15/21 04:00 12/15/21 06:00 Temperature 98 F Pulse Rate 80 71 Respiratory Rate 20 Blood Pressure 132/77 Pulse Oximetry 95 96 Oxygen Delivery Nasal Cannula Oxygen Flow Rate 2 12/15/21 08:27 12/15/21 08:30 12/15/21 08:37 Temperature Pulse Rate 70 73 Respiratory Rate 16 16 Blood Pressure Pulse Oximetry 97 Oxygen Delivery Nasal Cannula Oxygen Flow Rate 1 12/15/21 08:00 12/15/21 08:00 12/15/21 08:00 Temperature 97 F L Pulse Rate 72 69 Respiratory Rate 18 Blood Pressure 141/76 H Pulse Oximetry 97 94 Oxygen Delivery Nasal Cannula Oxygen Flow Rate 2 12/15/21 10:00 12/15/21 13:06 12/15/21 13:25 Temperature 98.3 F Pulse Rate 70 98 Respiratory Rate 18 Blood Pressure 137/72 Pulse Oximetry 69 L 94 Oxygen Delivery Nasal Cannula Oxygen Flow Rate 2 12/15/21 14:00 12/15/21 14:51 12/15/21 15:00 Temperature Pulse Rate
[2021-12-15 16:34] LABS: Glucose Point of Care 148 mg/dl (65-105)
--- NOTE | 2021-12-15 18:06 | PM.DS ---
DS: Admitting Diagnosis Discharge Date 12/15/21 Admitting Diagnosis Shortness of breath DS: Discharge Diagnosis Discharge Diagnosis (1) Acute hypercapnic respiratory failure: Code(s): J96.02 - Acute respiratory failure with hypercapnia Status: Acute (2) Elevated troponin: Code(s): R77.8 - Other specified abnormalities of plasma proteins Status: Acute (3) Acute exacerbation of chronic obstructive airways disease: Code(s): J44.1 - Chronic obstructive pulmonary disease with (acute) exacerbation Status: Acute (4) Hypertension: Code(s): I10 - Essential (primary) hypertension Status: Acute (5) CHF (congestive heart failure): Code(s): I50.9 - Heart failure, unspecified Status: Acute (6) Tobacco abuse: Code(s): Z72.0 - Tobacco use Status: Acute (7) Lung nodule: Code(s): R91.1 - Solitary pulmonary nodule Status: Acute DS: Summary Hospital Course Reason for hospitalization: 66yo female with HTN, COPD here for SOB. Please see H&P for details Hospital Course: Patient presents to the ED with complaints of SOB and productive cough. She was noted to be in moderate respriatory distress with hypoxia. ABG 7.09/99/235 on 7L NC. CXR was clear.? Influenza and COVID were negative.? She was treated with Solu-medrol, Nebs and abx. BiPAP started and repeat ABG showing 7.32/56/109 on bipap. Respiratory failure secondary to COPD exacerbation. She was transferred to [place]. ABG here was normal on 2L. CTA chest showing no PE but does show a 6.5mm EDITH mass, mild emphysema and atelectasis. Patient refused Apnea link. Sputum was clear so started on abx but CT showing no infiltrates so abx stopped. Troponin elevated and climbed to 2.4. EKG showing no acute findings and no change from prior. Elevated Trop due to NSTEMI type 2 secondary to demand ischemia from the severe respiratory failure. Cardiology consulted and patient underwent a Lexiscan stress test. Stress test showed normal myocardial perfusion at rest and during stress with LVEF 64%. Echo showing EF 55-60% and Grade i diastolic dysfunction. Patient quit tobacco 2 years ago but continues to smoke periodically.? She was educated about the benefits of smoking cessation. Sodium noted and probably within her baseline. CT scan showing 6.5mm nodule in the EDITH. Plan for further surveillance as outpatient. She overall did well and was able to be discharged home on 12/15/21. Status at Discharge Cognitive/behavioral status at discharge: Stable Time Spent with Patient Time attestation: Total time spent providing and/or coordinating discharge services: 32 minutes Time spent: Greater than 30 minutes Exam Narrative: AF 98.1 118/65 78 20 94% 2L Gen - NARD Chest -distant but clear BS. nml RR CV - RRR S1/S2. Tele showing no significant dysrhythmias Abd - Soft, NT/ND, Positive BS Ext - No pedal edema Psych - Nml mood and affect Skin - Warm and dry. DS: Data Data Completed and Pending Labs on day of discharge: Labs from last 24 hours 12/15/21 12/15/21 12/15/21 16:30 13:22 08:01 WBC RBC Hgb Hct MCV MCH MCHC RDW Plt Count MPV Immature Gran % (Auto) Neut % (Auto) Lymph % (Auto) [place] % (Auto) Eos % (Auto) Baso % (Auto) Lymph # (Auto) [place] # (Auto) Eos # (Auto) Baso # (Auto) Abs Immat Gran (auto) Absolute Neuts (auto) Absolute Nucleated RBC Nucleated RBC % Sodium Potassium Chloride Carbon Dioxide Anion Gap BUN Creatinine Estim Creat Clear Calc Estimated GFR Glucose POC Capillary Glucose 148 H 111 H 134 H Hemoglobin A1c Calcium Total Bilirubin AST ALT Alkaline Phosphatase Total Protein Albumin TSH (Reflex) 12/15/21 12/15/21 12/15/21 05:10 05:10 05:10 WBC RBC Hgb Hct MCV MCH MCHC RDW Plt Count
== END 2021-12-15 19:23 | disposition home or self-care (01) | DRG 189 ==
PROVIDERS: Admitting Provider Internal Medicine; PCP Family Medicine; Visit Provider Internal Medicine
DX: J96.02 Acute respiratory failure with hypercapnia (principal); I21.A1 Myocardial infarction type 2; I50.32 Chronic diastolic (congestive) heart failure; J96.01 Acute respiratory failure with hypoxia; J43.9 Emphysema, unspecified; I11.0 Hypertensive heart disease with heart failure; E78.5 Hyperlipidemia, unspecified; F17.210 Nicotine dependence, cigarettes, uncomplicated; R91.1 Solitary pulmonary nodule; Z79.82 Long term (current) use of aspirin; Z99.81 Dependence on supplemental oxygen
CPT/HCPCS: 36415; 36600; 71275; 78452; 80053; 80061; 82375; 82805; 82948; 83036; 83050; 84443; 84484; 85025; 93017; 93306; 94640; A9270; A9502; J1650; J2785; J2920; J7030; Q9967

== ENCOUNTER 2022-01-09 17:52 | Emergency (ER) | payer MEDICARE, SELFPAY ==
--- NOTE | ~2022-01-09 | XR_ITS ---
EXAMINATION: XR chest 1V portable Exam Date/Time: 01/09/2022 18:20 BRIM PLATER HISTORY: sob, known copd Comparison: 12/13/2021. RESULT: Lines, tubes, and devices: None. Lungs and pleura: Clear. Cardiomediastinal silhouette: Stable. Other: No acute osseous or upper abdominal finding. IMPRESSION: No acute cardiopulmonary process. Reviewed, dictated and finalized at location K. PLATER
[2022-01-09 18:02] VITALS: BP 154/87; PULSE 116; RESP 20; TEMP 37.1; O2SAT 95
[2022-01-09 18:20] VITALS: PULSE 113; RESP 22; O2SAT 94
[2022-01-09] MEDS: IPRATROPIUM 0.5 MG/ALBUTEROL SULFATE 2.5 MG AMPUL.NEB 3 ML INHALATION (18:26)
[2022-01-09 18:30] VITALS: PULSE 108; RESP 20; O2SAT 96
[2022-01-09 18:48] LABS: Basophils Absolute Auto 0.05 K/mm3 (0.00-0.10); Basophils Percent Auto 0.5 % (0.0-1.0); Eosinophils Absolute Auto 0.28 K/mm3 (0.02-0.50); Eosinophils Percent Auto 2.8 % (1.0-6.0); Hematocrit 38.2 % (35.0-42.0); Hemoglobin 12.5 g/dL (11.7-13.8); Immature Granulocyte Absolute 0.05 K/mm3 (0.00-0.00); Immature Granulocyte Percent A 0.5 % (0.0-0.0); Lymphocytes Absolute Auto 0.78 K/mm3 (1.10-4.50); Lymphocytes Percent Auto 7.9 % (18.0-42.0); Mean Corpuscular HGB Conc 32.7 g/dL (32.0-36.0); Mean Corpuscular Hemoglobin 31.5 pg (27.0-31.0); Mean Corpuscular Volume 96.2 fL (78.0-102.0); Mean Platelet Volume 9.9 fl (9.2-11.8); Monocytes Absolute Auto 0.84 K/mm3 (0.10-0.90); Monocytes Percent Auto 8.5 % (2.0-11.0); Neutrophils Absolute Auto 7.8 K/mm3 (1.7-7.2); Neutrophils Percent Auto 79.8 % (50.0-70.0); Platelet Count Result 295 K/mm3 (150-420); Red Blood Count 3.97 M/mm3 (4.20-5.40); Red Cell Distribution Width 13.8 % (11.6-14.4); White Blood Count 9.8 K/mm3 (4.8-10.8)
[2022-01-09] MEDS: SODIUM CHLORIDE 0.9% IV 500 ML 999 ML IV CONT (18:48)
[2022-01-09] MEDS: methylPREDNISolone SOD SUCC 125 MG VIAL IV PUSH (19:01)
[2022-01-09 19:04] LABS: Alanine Aminotransferase 21 U/L (14-59); Albumin Level 4.2 g/dL (3.4-5.0); Alkaline Phosphatase 95 U/L (46-116); Anion Gap 7 mmol/L (8-16); Aspartate Amino Transferase 26 U/L (15-37); Bilirubin,Total 0.5 mg/dL (0.00-1.00); Blood Urea Nitrogen 18 mg/dL (7-18); Calcium 8.8 mg/dL (8.5-10.1); Carbon Dioxide 31 mmol/L (21-32); Chloride 94 mmol/L (98-108); Estimated Glomerular Filt Rate > 60; Glucose 125 mg/dL (70-99); Osmolality Calculated 276 mOsm/kg (285-295); Potassium 4.2 mmol/L (3.5-5.1); Sodium 132 mmol/L (136-145); Total Protein 7.3 g/dL (6.4-8.2)
[2022-01-09 19:10] VITALS: BP 144/73; PULSE 106; RESP 20; TEMP 37.2; O2SAT 93
[2022-01-09 19:49] LABS: Add Urine Microscopic? YES; Appearance Urine Clear (Clear); Bilirubin Urine Negative (Negative); Blood Urine 2+ (Negative); Color Urine Yellow (Yellow); Glucose Urine UA Negative (Negative); Ketones Urine 1+ (Negative); Leukocyte Esterase Ur Negative LEU/UL (Negative); Nitrate Urine Negative (Negative); Protein Urine Negative (Negative); Specific Grav Ur >= 1.030 (1.010-1.020); Urobilinogen Urine 0.2 mg/dL (0.2-1.0)
[2022-01-09 19:59] LABS: Amorphous Sediment Urine Few; Squamous Epithelial Cell Urine Few /hpf (Few)
[2022-01-09 20:00] VITALS: BP 144/69; PULSE 87; RESP 20; TEMP 37.2; O2SAT 94
[2022-01-09 20:00] LABS: Mucus Urine Few /lpf
--- NOTE | 2022-01-09 20:19 | ED.SOB ---
HPI - SOB/Dyspnea General Chief Complaint: Shortness of Breath/Dyspnea Stated Complaint: amb Time Seen by Provider: 01/09/22 17:55 Source: patient and RN notes reviewed Mode of arrival: ambulatory Limitations: no limitations History of Present Illness MD elicited complaint: shortness of breath and cough Pertinent past history: COPD Onset (ago): day(s) (2) Timing: progressively worsening Severity: moderate Exacerbating factors: nothing Relieving factors: bronchodilators Known history of: COPD Associated symptoms: denies other symptoms, cough and wheezing Related Data Home Medications Medication Instructions Recorded Confirmed atorvastatin 40 mg tablet 40 mg PO DAILY 11/27/21 01/09/22 fluticasone 500 mcg-salmeterol 50 1 ea inhalation Q12H 11/27/21 01/09/22 mcg/dose blistr powdr for inhalation (Advair Diskus) lisinopril 10 mg tablet 10 mg PO DAILY 11/27/21 01/09/22 aspirin 81 mg tablet 81 mg PO DAILY 12/14/21 01/09/22 ipratropium 0.5 mg-albuterol 3 mg 3 ml inhalation QID 12/14/21 01/09/22 (2.5 mg base)/3 mL nebulization soln Allergies Allergy/AdvReac Type Severity Reaction Status Date / Time No Known Allergies Allergy Verified 01/09/22 18:06 Review of Systems Review of Systems: All systems reviewed & are unremarkable except as noted in HPI and below Constitutional: Constitutional: Reports no additional constitutional complaints Eyes: Eyes: Reports no additional eye complaints ENT: Reports system reviewed and no additional complaints, except as documented Cardiovascular: Cardiovascular: Reports no additional cardiovascular complaints Respiratory: Respiratory: Reports no additional respiratory complaints, Reports chest congestion, Reports cough and Reports wheezing Gastrointestinal: Gastrointestinal: Reports no additional gastrointestinal complaints Genitourinary: Genitourinary: Reports no additional female genitourinary complaints Musculoskeletal: Musculoskeletal: Reports no additional musculoskeletal complaints Integumentary/Breasts: Skin/Breast: Reports system reviewed and no additional complaints, except as docu Neurologic: Reports system reviewed and no additional complaints, except as documented Psychiatric: Psychiatric: Reports no additional psychiatric complaints Endocrine: Endocrine: Reports no additional endocrine complaints Hematologic/Lymphatic: Hematologic/Lymphatic: Reports no additional hematologic/lymphatic complaints Allergic/Immunologic: Allergic/Immunologic: Reports no additional allergic/immunologic complaints [facility] Past Medical History Medical History COPD (chronic obstructive pulmonary disease) Hyperlipidemia Hypertension Family History Family History Mother Congestive heart failure Diabetes mellitus Father Prostate carcinoma Sibling Coronary artery disease Diabetes mellitus Hx of CABG Sibling Diabetes mellitus Social History Social History Smoking packs per day: 1 Smoking cigarettes per day: 20.0 Years smoked: 42 Smoking pack-years: 42.00 Smoking status: Former smoker Tobacco type: cigarettes Second hand tobacco smoke exposure: No Alcohol intake: current Drinks per week: 10 Substance use: never Substance use type: does not use Lack of Transportation: No Lack of Food: Never True Current Housing: I Have Housing Concerned About Future Housing: No Difficulty Paying Gas/Electric Bills: No Difficulty Paying for Meds: No Currently Unemployed: No Education: High School Diploma/GED Difficulty w/ Childcare or Family Care: No Spiritual care concerns: No Exam Const: General: no acute distress and well nourished Nutritional Appearance: well nourished Orientation/consciousness: patient oriented x3 Limitations: no limitations HENMT: Head: nor
--- NOTE | 2022-01-09 20:24 | PC.NURSE ---
pt assisted to cot, head of bed elevated to level of comfort. call mendoza in reach. no complaints or needs voiced at this time.
[2022-01-09 20:40] VITALS: BP 153/84; PULSE 88; RESP 20; TEMP 37.2; O2SAT 94
== END 2022-01-09 21:20 | disposition home or self-care (01) ==
PROVIDERS: Emergency Provider Emergency Medicine; PCP Family Medicine
DX: J44.1 Chronic obstructive pulmonary disease with (acute) exacerbation (principal); E78.5 Hyperlipidemia, unspecified; I10 Essential (primary) hypertension; Z87.891 Personal history of nicotine dependence
CPT/HCPCS: 36415; 71045; 80053; 81001; 85025; 94640; 96374; 99284; J2930; J7040

== ENCOUNTER 2022-02-21 19:58 | Emergency (ER) | payer MEDICARE, SELFPAY ==
[2022-02-21] VITALS (9 sets, daily range): BP systolic 131–138; BP diastolic 81–82; PULSE 69–83; RESP 16–20; TEMP 36.4–36.7; O2SAT 95–99
--- NOTE | ~2022-02-21 | XR_ITS ---
EXAMINATION: XR chest 2V Exam Date/Time: 02/21/2022 21:00 ADMINISTRATOR PESTICIDE HISTORY: COUGH, SHORTNESS OF BREATH. Comparison: 01/09/2022 and CTPA 12/14/2021. RESULT: Lines, tubes, and devices: None. Lungs and pleura: Clear. Cardiomediastinal silhouette: Stable. Other: No acute osseous or upper abdominal finding. Multiple old right rib fractures. IMPRESSION: No acute cardiopulmonary process. Reviewed, dictated and finalized at location K. NISTRATOR PESTICIDE
--- NOTE | 2022-02-21 20:26 | ED.SOB ---
HPI - SOB/Dyspnea General Chief Complaint: Shortness of Breath/Dyspnea Stated Complaint: ambulance Time Seen by Provider: 02/21/22 20:26 History of Present Illness HPI Narrative: 66-year-old female patient with known history of COPD dependent on home oxygen as well as nebulizer treatments is brought in by the EMS with complaints of increased shortness of breath and wheezing and requiring more frequent and high doses of nebulizer treatment at home. She states that she has been suffering with the shortness of breath and cough and cold symptoms for the last month or so. She did take a course of prednisone and finished that 4 days ago and since then her shortness of breath has gotten worse. She states that she does not smoke anymore. She is however exposed to secondhand smoke at home from her . Patient reports no fever or chills. Reports no blood in the sputum. patient states that she has a follow-up appointment with her primary care doctor tomorrow at 2:00 p.m. and she will keep that. She is concerned about not having albuterol in the right does at home. Has had a negative flu and COVID recently. Related Data Home Medications Medication Instructions Recorded Confirmed atorvastatin 40 mg tablet 40 mg PO DAILY 11/27/21 02/21/22 fluticasone 500 mcg-salmeterol 50 1 ea inhalation Q12H 11/27/21 02/21/22 mcg/dose blistr powdr for inhalation (Advair Diskus) lisinopril 10 mg tablet 10 mg PO DAILY 11/27/21 02/21/22 aspirin 81 mg tablet 81 mg PO DAILY 12/14/21 02/21/22 ipratropium 0.5 mg-albuterol 3 mg 3 ml inhalation QID 12/14/21 02/21/22 (2.5 mg base)/3 mL nebulization soln Allergies Allergy/AdvReac Type Severity Reaction Status Date / Time No Known Allergies Allergy Verified 01/09/22 18:06 Review of Systems Review of Systems: All systems reviewed & are unremarkable except as noted in HPI and below Constitutional: Constitutional: Reports no additional constitutional complaints, Denies chills, Denies fatigue, Denies fever(s) and Denies weakness Eyes: Eyes: Reports no additional eye complaints ENT: Reports system reviewed and no additional complaints, except as documented Cardiovascular: Cardiovascular: Reports no additional cardiovascular complaints, Denies chest pain, Denies rapid heart rate, Denies radiating jaw, neck or arm pain and Denies slow heart rate Respiratory: Respiratory: Reports chest congestion, Reports cough, Reports dyspnea and Reports wheezing Gastrointestinal: Gastrointestinal: Reports no additional gastrointestinal complaints Genitourinary: Genitourinary: Reports no additional female genitourinary complaints Musculoskeletal: Musculoskeletal: Reports no additional musculoskeletal complaints Integumentary/Breasts: Skin/Breast: Reports system reviewed and no additional complaints, except as docu Neurologic: Reports system reviewed and no additional complaints, except as documented Psychiatric: Psychiatric: Reports no additional psychiatric complaints Endocrine: Endocrine: Reports no additional endocrine complaints Hematologic/Lymphatic: Hematologic/Lymphatic: Reports no additional hematologic/lymphatic complaints Allergic/Immunologic: Allergic/Immunologic: Reports no additional allergic/immunologic complaints PMF Past Medical History Medical History COPD (chronic obstructive pulmonary disease) Hyperlipidemia Hypertension Family History Family History Mother Congestive heart failure Diabetes mellitus Father Prostate carcinoma Sibling Coronary artery disease Diabetes mellitus Hx of CABG Sibling Diabetes mellitus Social History Social History Smoking packs per day: 1 Smoking cigarettes per day: 20.0 Years smoked: 42 Smoking pack-years: 42.00 Smoking status: Former smoker Tobacco type: cigarettes Sec
[2022-02-21] MEDS: IPRATROPIUM BR 0.02% INH SOLN 0.5 MG/2.5 ML VIAL INHALATION (20:40)
[2022-02-21] MEDS: methylPREDNISolone SOD SUCC 125 MG VIAL IV PUSH (20:40)
[2022-02-21] MEDS: ALBUTEROL SULFATE NEB 2.5 MG/3 ML INH 5 MG INHALATION (20:45)
[2022-02-21 20:51] LABS: Hemoglobin 12.2 g/dL (11.7-13.8); Mean Corpuscular HGB Conc 33.9 g/dL (32.0-36.0); Mean Corpuscular Hemoglobin 31.5 pg (27.0-31.0); Platelet Count Result 332 K/mm3 (150-420); Red Blood Count 3.87 M/mm3 (4.20-5.40); Red Cell Distribution Width 13.1 % (11.6-14.4); White Blood Count 5.3 K/mm3 (4.8-10.8)
[2022-02-21 20:55] LABS: Add Urine Microscopic? YES; Appearance Urine Clear (Clear); Bilirubin Urine Negative (Negative); Blood Urine 1+ (Negative); Color Urine Light Yellow (Yellow); Glucose Urine UA 1+ (Negative); Ketones Urine Negative (Negative); Leukocyte Esterase Ur Negative LEU/UL (Negative); Nitrate Urine Negative (Negative); Protein Urine Negative (Negative); Specific Grav Ur 1.015 (1.010-1.020); Urobilinogen Urine 0.2 mg/dL (0.2-1.0)
[2022-02-21 21:01] LABS: RBC Urine 0-2 /hpf (0-2); Squamous Epithelial Cell Urine Few /hpf (Few)
[2022-02-21 21:12] LABS: Alanine Aminotransferase 20 U/L (14-59); Albumin Level 3.8 g/dL (3.4-5.0); Alkaline Phosphatase 89 U/L (46-116); Anion Gap 3 mmol/L (8-16); Aspartate Amino Transferase 24 U/L (15-37); Bilirubin,Total 0.3 mg/dL (0.00-1.00); Blood Urea Nitrogen 8 mg/dL (7-18); Calcium 8.4 mg/dL (8.5-10.1); Carbon Dioxide 33 mmol/L (21-32); Chloride 88 mmol/L (98-108); Estimated CRCL calculation 92 ml/min; Estimated Glomerular Filt Rate > 60; Glucose 143 mg/dL (70-99); Magnesium 1.7 mg/dL (1.8-2.4); NT Pro B Type Natriuretic Pept 67 pg/mL (0-125); Osmolality Calculated 258 mOsm/kg (285-295); Potassium 3.6 mmol/L (3.5-5.1); Sodium 124 mmol/L (136-145); Total Protein 6.3 g/dL (6.4-8.2)
[2022-02-21 21:33] LABS: Band Neutrophils Percent 0 % (0-6); Basophils Absolute Manual 0.05 K/mm3 (0-0.1); Basophils Percent Manual 1 % (0-1); Eosinophils Absolute Manual 0.05 K/mm3 (0.02-0.5); Eosinophils Percent Manual 1 % (1-6); Lymphocytes Absolute Manual 1.48 K/mm3 (1.1-4.5); Lymphocytes Percent Manual 28 % (18-44); Monocytes Absolute Manual 0.74 K/mm3 (0.1-0.90); Monocytes Percent Manual 14 % (3-9); Neutrophils Absolute Manual 2.96 K/mm3 (1.7-7.2); Neutrophils Percent Manual 56 % (46-73); Total Cells Counted 100
[2022-02-21 21:34] LABS: Platelet Estimate Adequate (Adequate); Schistocytes None Seen (NORMAL)
[2022-02-21] MEDS: ACETAMINOPHEN 325 MG TABLET 650 MG PO (21:57)
== END 2022-02-21 23:12 | disposition home or self-care (01) ==
PROVIDERS: Emergency Provider Emergency Medicine; PCP Family Medicine
DX: J44.1 Chronic obstructive pulmonary disease with (acute) exacerbation (principal); I10 Essential (primary) hypertension; E78.5 Hyperlipidemia, unspecified; Z87.891 Personal history of nicotine dependence; Z77.22 Contact with and (suspected) exposure to environmental tobacco smoke (acute) (chronic); Z79.51 Long term (current) use of inhaled steroids; Z79.82 Long term (current) use of aspirin
CPT/HCPCS: 36415; 71046; 80053; 81001; 83735; 83880; 85025; 94640; 96374; 99284; A9270; J2930

== ENCOUNTER 2022-02-23 04:27 | Observation (INO) | payer MEDICARE, SELFPAY ==
[2022-02-23] VITALS (30 sets, daily range): BP systolic 100–161; BP diastolic 60–88; PULSE 56–93; RESP 12–27; TEMP 36.2–36.6; O2SAT 91–99; BMI 25.7
--- NOTE | ~2022-02-23 | XR_ITS ---
EXAMINATION: XR chest 1V portable DATE: 02/23/2022 05:33 INDICATION: Shortness of breath. Cough. TECHNIQUE: A single frontal view of the chest was obtained. COMPARISON: Chest 2 views 02/21/2022, chest CT 12/14/2021 FINDINGS: The chest demonstrates clear lungs without pneumonia, pleural effusion, or pneumothorax. Th e heart size is normal. There are old healed right rib fractures. IMPRESSION: 1. No acute cardiopulmonary disease. Reviewed, dictated and finalized at location A. EL KILN OPERATOR
--- NOTE | 2022-02-23 04:42 | ECG_ITS ---
Measurements Intervals [place] Rate: 75 P: 76 CO: 157 QRS: 62 QRSD: 89 T: 42 QT: 391 QTc: 437 Interpretive Statements SINUS RHYTHM NONSPECIFIC T-WAVE ABNORMALITY- ANTERIOR LEADS BASELINE ARTIFACT- I, II, III, AVR, AVL, AVF, V1-V6 BORDERLINE ECG COMPARED TO ECG 12/13/2021 19:53:29 SINUS RHYTHM NOW PRESENT Electronically Signed On 02-23-2022 8:07:58 COOK APPRENTICE PASTRY by Bridger Che D.O.
--- NOTE | 2022-02-23 04:42 | ED.GENADULT ---
HPI - General Adult General Chief complaint: Shortness of Breath/Dyspnea Stated complaint: SOB Source: patient Mode of arrival: ambulatory Limitations: no limitations History of Present Illness HPI narrative: Patient is a 66-year-old white female COPD patient was seen in the emergency department last night for same symptoms of shortness of breath preceded by 5 days of increasing cough and shortness of breath with yellow sputum. She stated that she had been taking a Zithromax in and prednisone. Tonight she got more short of breath and called the ambulance for evaluation in the ED. patient stated her smokes in the basement but she quit years ago. Denies chest pain , nausea, vomiting, diarrhea, problems stooling or voiding or Rash or itching bleeding or bruising. Patient had an appointment with her doctor February 22 at 2:00 p.m. but she missed that appointment got confused about when the appointment was. past medical history: COPD hypertension hyperlipidemia.,,,,,,,,,, She denies any heart disease kidney liver diabetes thyroid or intestinal disease. Related Data Home Medications Medication Instructions Recorded Confirmed atorvastatin 40 mg tablet 40 mg PO DAILY 11/27/21 02/23/22 fluticasone 500 mcg-salmeterol 50 1 ea inhalation Q12H 11/27/21 02/23/22 mcg/dose blistr powdr for inhalation (Advair Diskus) lisinopril 10 mg tablet 10 mg PO DAILY 11/27/21 02/23/22 aspirin 81 mg tablet 81 mg PO DAILY 12/14/21 02/23/22 ipratropium 0.5 mg-albuterol 3 mg 3 ml inhalation QID 12/14/21 02/23/22 (2.5 mg base)/3 mL nebulization soln Allergies Allergy/AdvReac Type Severity Reaction Status Date / Time No Known Allergies Allergy Verified 01/09/22 18:06 Review of Systems Constitutional: Constitutional: Reports no additional constitutional complaints, Denies chills, Denies fatigue, Denies fever(s) and Denies weakness Eyes: Eyes: Reports no additional eye complaints ENT: Reports system reviewed and no additional complaints, except as documented, Denies dizziness, Denies nasal congestion and Denies sore throat Cardiovascular: Cardiovascular: Reports no additional cardiovascular complaints and Denies chest pain Respiratory: Respiratory: Reports as per HPI, Reports no additional respiratory complaints, Reports cough, Reports dyspnea and Reports wheezing Gastrointestinal: Gastrointestinal: Reports no additional gastrointestinal complaints, Denies abdominal pain, Denies constipation, Denies diarrhea, Denies nausea and Denies vomiting Genitourinary: Genitourinary: Reports no additional female genitourinary complaints, Denies hematuria, Denies nocturia and Denies pelvic pain Musculoskeletal: Musculoskeletal: Reports no additional musculoskeletal complaints, Denies back pain, Denies myalgias, Denies arthralgias and Denies joint swelling Integumentary/Breasts: Skin/Breast: Denies rash Neurologic: Reports system reviewed and no additional complaints, except as documented, Denies confusion, Denies dizziness, Denies headache(s), Denies focal weakness, Denies numbness and Denies weakness Psychiatric: Psychiatric: Reports anxiety Hematologic/Lymphatic: Hematologic/Lymphatic: Denies easy bleeding and Denies easy bruising Comments: Denies any bleeding or bruising. [facility] Past Medical History Medical History COPD (chronic obstructive pulmonary disease) Hyperlipidemia Hypertension Family History Family History Mother Congestive heart failure Diabetes mellitus Father Prostate carcinoma Sibling Coronary artery disease Diabetes mellitus Hx of CABG Sibling Diabetes mellitus Social History Social History Smoking packs per day: 1 Smoking cigarettes per day: 20.0 Years smoked: 42 Smoking pack-years: 42.00 Smoking status: Former smoker
[2022-02-23] MEDS: IPRATROPIUM 0.5 MG/ALBUTEROL SULFATE 2.5 MG AMPUL.NEB 3 ML INHALATION ×5 (04:59→21:43)
--- NOTE | 2022-02-23 05:15 | PC.NURSE ---
Pt is resting more comfortably since given neb txs, VSS, monitor showing NSR. Call mendoza at pt side.
[2022-02-23 05:18] LABS: Hematocrit 35.4 % (35.0-42.0); Mean Corpuscular HGB Conc 33.9 g/dL (32.0-36.0); Mean Corpuscular Hemoglobin 31.8 pg (27.0-31.0); Mean Corpuscular Volume 93.9 fL (78.0-102.0); Mean Platelet Volume 8.8 fl (9.2-11.8); Platelet Count Result 325 K/mm3 (150-420); Red Blood Count 3.77 M/mm3 (4.20-5.40); White Blood Count 6.7 K/mm3 (4.8-10.8)
[2022-02-23] MEDS: methylPREDNISolone SOD SUCC 125 MG VIAL IV PUSH (05:18)
[2022-02-23 05:28] LABS: Band Neutrophils Percent 0 % (0-6); Basophils Percent Manual 0 % (0-1); Eosinophils Percent Manual 0 % (1-6); Lymphocytes Percent Manual 27 % (18-44); Monocytes Percent Manual 12 % (3-9); Neutrophils Absolute Manual 4.08 K/mm3 (1.7-7.2); Neutrophils Percent Manual 61 % (46-73); Platelet Estimate Adequate (Adequate)
[2022-02-23 05:32] LABS: Partial Thromboplastin Time 28.2 SEC (23.90-30.70); Prothrombin Time 11.4 Seconds (9.50-12.10)
[2022-02-23 05:40] LABS: Alanine Aminotransferase 33 U/L (14-59); Albumin Level 3.9 g/dL (3.4-5.0); Alkaline Phosphatase 69 U/L (46-116); Anion Gap 5 mmol/L (8-16); Aspartate Amino Transferase 49 U/L (15-37); Bilirubin,Total 0.4 mg/dL (0.00-1.00); Blood Urea Nitrogen 6 mg/dL (7-18); Calcium 8.4 mg/dL (8.5-10.1); Carbon Dioxide 33 mmol/L (21-32); Chloride 85 mmol/L (98-108); Estimated CRCL calculation 103 ml/min; Estimated Glomerular Filt Rate > 60; Glucose 116 mg/dL (70-99); Magnesium 1.7 mg/dL (1.8-2.4); NT Pro B Type Natriuretic Pept 115 pg/mL (0-125); Osmolality Calculated 254 mOsm/kg (285-295); Potassium 3.4 mmol/L (3.5-5.1); Sodium 123 mmol/L (136-145); Total Protein 6.3 g/dL (6.4-8.2); Troponin I 12.3 ng/L (0.00-60.4)
--- NOTE | 2022-02-23 06:05 | PC.NURSE ---
Orders obtained for 23 hrs obs admit. ERP Dr Maldonado spoke c Silviano, PIG STICKER and orders obtained.
--- NOTE | 2022-02-23 06:28 | PC.NURSE ---
Pt to go to Rm 208, 23 hr obs admit c tele. Awaiting covid test results before admission.
--- NOTE | 2022-02-23 06:58 | PC.NURSE ---
Call placed to floor to give report, pt will be admitted pending covid results.
[2022-02-23 07:02] LABS: Influenza A QL RT-PCR Negative (Negative); Influenza B QL RT-PCR Negative (Negative); SARS-CoV-2 RNA PCR Negative (Negative)
[2022-02-23 07:03] LABS: RSV RNA, RT-PCR Negative (Negative)
[2022-02-23] MEDS: ATORVASTATIN 40 MG TABLET PO (09:11)
[2022-02-23] MEDS: AMOXICILLIN/CLAVULANATE K 875-125 MG TAB 1 TABLET PO ×2 (09:11→20:20)
[2022-02-23] MEDS: ASPIRIN 81 MG ENTERIC TABLET PO (09:12)
[2022-02-23] MEDS: lisinopriL 10 MG TABLET PO (09:12)
[2022-02-23] MEDS: SALMET XINAFT/FLUTIC PROPIN 250 MCG/50 MCG INH CAP 1 PUFF INHALATION ×2 (09:13→20:20)
[2022-02-23] MEDS: ESCITALOPRAM OXALATE 5 MG TABLET PO (09:45)
[2022-02-23] MEDS: SODIUM CHLORIDE 1 GM TABLET PO ×2 (09:45→17:42)
--- NOTE | 2022-02-23 10:20 | PM.IMHP ---
H&P: HPI History of Present Illness Date/Time: 02/23/22 10:20 Chief Complaint: Shortness of breath Narrative: this is a 66-year-old female admitted to the hospital with COPD exacerbation patient had a film of for few days with some weakness patient is on a home oxygen at 2 L. Patient was found to be hyponatremic which is acute on chronic hyponatremia noted chest x-ray revealed --Oxygen 2l nc exacerbation there is no pneumonia found patient has a past medical history of COPD hyperlipidemia hypertension was admitted to the hospital back in November of 2021 was sent home with a nebulizer and oxygen at that time. At this time patient will be admitted she has some hyponatremia of 3.4, hyponatremia at 1:23 a.m. she was 1244 days prior BUN is 6, creatinine is 38 0.38, glucose is 116, white blood count of 6.7, hemoglobin 12 hematocrit 35.4 platelets of 325 at this time patient was started on Q 4 hour nebulizers she received IV steroids and oxygen she will be seen by Physical therapy as well we will continue with home medications a repeat chest x-ray in the morning will possibly start some antibiotics if pneumonia is found. Review of Systems Review of Systems: shortness of breath All systems reviewed & are unremarkable except as noted in HPI and below PMFSH Past Medical History Medical History (Updated 02/23/22 @ 10:24 by Yvonne Vasquez NP) COPD (chronic obstructive pulmonary disease) Hyperlipidemia Hypertension Weakness Family History Family History Mother Congestive heart failure Diabetes mellitus Father Prostate carcinoma Sibling Coronary artery disease Diabetes mellitus Hx of CABG Sibling Diabetes mellitus Social History Social History Smoking packs per day: 1 Smoking cigarettes per day: 20.0 Years smoked: 42 Smoking pack-years: 42.00 Smoking status: Former smoker Tobacco type: cigarettes Second hand tobacco smoke exposure: No Alcohol intake: current Drinks per week: 10 Substance use: never Substance use type: does not use Lack of Transportation: No Lack of Food: Never True Current Housing: I Have Housing Concerned About Future Housing: No Difficulty Paying Gas/Electric Bills: No Difficulty Paying for Meds: No Currently Unemployed: No Education: High School Diploma/GED Difficulty w/ Childcare or Family Care: No Spiritual care concerns: No Meds Home Medications and Allergies Home Medications Medication Instructions Recorded Confirmed Type atorvastatin 40 mg tablet 40 mg PO DAILY 11/27/21 02/23/22 History fluticasone 500 mcg-salmeterol 50 1 ea inhalation Q12H 11/27/21 02/23/22 History mcg/dose blistr powdr for inhalation (Advair Diskus) lisinopril 10 mg tablet 10 mg PO DAILY 11/27/21 02/23/22 History albuterol sulfate 90 mcg/actuation 1 inh inhalation QID PRN shortness 11/29/21 02/23/22 Rx aerosol inhaler of breath or wheezing #8.5 grams aspirin 81 mg tablet 81 mg PO DAILY 12/14/21 02/23/22 History ipratropium 0.5 mg-albuterol 3 mg 3 ml inhalation QID 12/14/21 02/23/22 History (2.5 mg base)/3 mL nebulization soln Allergies Allergy/AdvReac Type Severity Reaction Status Date / Time No Known Allergies Allergy Verified 01/09/22 18:06 Vital Signs Vital Signs - 24 hr 02/23/22 04:35 02/23/22 04:35 02/23/22 04:35 Temperature 97.9 F Pulse Rate 75 75 Respiratory Rate 22 H Blood Pressure 161/88 H Pulse Oximetry 94 94 Oxygen Delivery Nasal Cannula Nasal Cannula Oxygen Flow Rate 2 2 02/23/22 04:42 02/23/22 05:00 02/23/22 05:09 Temperature Pulse Rate 75 78 92 Respiratory Rate 22 H 16 20 Blood Pressure Pulse Oximetry 94 99 Oxygen Delivery Nasal Cannula Oxygen Flow Rate 2 2 02/23/22 05:12 02/23/22 05:15 02/23/22 05:16 Temperature Pulse Rate 78 72 78 Respiratory Rate 17 12 17 Bl
[2022-02-23 10:34] LABS: Sodium Urine Random 32 mmol/L (20-110)
--- NOTE | 2022-02-23 11:09 | PC.NURSE ---
Pt admitted to room 208 from the ER as Observation status. DX: Exacerbation of COPD. Call system reviewed with pt. Pt instructed on how to operate the TV. RN asked pt to call the nurse prior to getting out of bed. Pt verbalized understanding of instructions.
[2022-02-23] MEDS: methylPREDNISolone SOD SUCC 125 MG VIAL 60 MG IV PUSH ×2 (12:07→17:41)
[2022-02-24] VITALS (8 sets, daily range): BP systolic 162; BP diastolic 85; PULSE 74–101; RESP 14–20; TEMP 36.6; O2SAT 94–96
[2022-02-24] MEDS: methylPREDNISolone SOD SUCC 125 MG VIAL 60 MG IV PUSH ×2 (00:19→05:08)
[2022-02-24] MEDS: IPRATROPIUM 0.5 MG/ALBUTEROL SULFATE 2.5 MG AMPUL.NEB 3 ML INHALATION ×3 (01:21→10:22)
[2022-02-24] MEDS: ACETAMINOPHEN 325 MG TABLET 650 MG PO (01:32)
[2022-02-24 05:17] LABS: Hemoglobin 11.8 g/dL (11.7-13.8); Mean Corpuscular HGB Conc 33.7 g/dL (32.0-36.0); Mean Corpuscular Hemoglobin 31.7 pg (27.0-31.0); Mean Corpuscular Volume 94.1 fL (78.0-102.0); Platelet Count Result 334 K/mm3 (150-420); Red Blood Count 3.72 M/mm3 (4.20-5.40); Red Cell Distribution Width 13.1 % (11.6-14.4)
[2022-02-24 05:28] LABS: Anion Gap 7 mmol/L (8-16); Blood Urea Nitrogen 9 mg/dL (7-18); Calcium 8.8 mg/dL (8.5-10.1); Carbon Dioxide 30 mmol/L (21-32); Chloride 90 mmol/L (98-108); Estimated CRCL calculation 94 ml/min; Estimated Glomerular Filt Rate > 60; Glucose 173 mg/dL (70-99); Osmolality Calculated 266 mOsm/kg (285-295); Potassium 3.8 mmol/L (3.5-5.1); Sodium 127 mmol/L (136-145)
--- NOTE | 2022-02-24 05:51 | PC.NURSE ---
Abiola from [facility] had informed this RN that the pt was crying and under the impression that this RN had yelled at the pt. This RN inquired earlier if the pt had had more fluid than allotted to which Shanae had declined saying she would not do so in order to go home sooner which she has verbalized a want of all night. This RN asked the pt why she believed that she was yelled at to which the pt replied I know I wasn't yelled at; I'm just anxious and ready to go home, and don't like being confronted. This RN again communicated to the pt that the conversation was not confrontational to which the pt agreed with. Lotion provided to pt per request. Call light w/in reach.
[2022-02-24] MEDS: SALMET XINAFT/FLUTIC PROPIN 250 MCG/50 MCG INH CAP 1 PUFF INHALATION (09:00)
[2022-02-24] MEDS: ATORVASTATIN 40 MG TABLET PO (09:01)
[2022-02-24] MEDS: lisinopriL 10 MG TABLET PO (09:01)
[2022-02-24] MEDS: AMOXICILLIN/CLAVULANATE K 875-125 MG TAB 1 TABLET PO (09:01)
[2022-02-24] MEDS: ASPIRIN 81 MG ENTERIC TABLET PO (09:01)
[2022-02-24] MEDS: SODIUM CHLORIDE 1 GM TABLET PO (09:01)
[2022-02-24] MEDS: ESCITALOPRAM OXALATE 5 MG TABLET PO (09:02)
--- NOTE | 2022-02-24 09:58 | PM.DS ---
DS: Admitting Diagnosis Discharge Date 02/24/2022 Admitting Diagnosis COPD exacerbation, hypokalemia DS: Discharge Diagnosis Discharge Diagnosis (1) Acute exacerbation of chronic obstructive pulmonary disease: Code(s): J44.1 - Chronic obstructive pulmonary disease with (acute) exacerbation Status: Acute Assessment and Plan: oxygen at 2 L was just according to pulse ox Keep pulse ox above 90% IV steroids q.6 hours Breathing treatments q.6 hours Monitor for any respiratory distress Discharge date patient will discharge with home to oxygen, Medrol Rupesh, and azithromycin. instructed to use her inhalers and nebulizer (2) Acute hyponatremia: Code(s): E87.1 - Hypo-osmolality and hyponatremia Status: Acute Assessment and Plan: this is more likely acute on chronic hyponatremia currently 123 Fluid restriction 1800 mL per day Added salt tab 1 g b.i.d. Will monitor labs discharge date spoke with patient's primary care physician agree to monitor patient's sodium level she will discharge home with sodium tabs her sodium level has improved from 123-127. Patient also instructed to limit her water intake and continue her sodium tabs with a repeat lab in 3 days with results to primary care physician (3) Tobacco abuse: Code(s): Z72.0 - Tobacco use Status: Acute Assessment and Plan: smoking cessation advised Nicotine patch (4) Hypertension: Code(s): I10 - Essential (primary) hypertension Status: Acute Assessment and Plan: monitor blood pressure Continue home blood pressure medication Adjust medication as needed (5) Kidney disease: Code(s): N28.9 - Disorder of kidney and ureter, unspecified Status: Acute Assessment and Plan: avoid any nephrotoxic medication Monitor kidney function IV fluids is indicated discharge date patient at baseline (6) CHF (congestive heart failure): Code(s): I50.9 - Heart failure, unspecified Status: Acute Assessment and Plan: compensated (7) Weakness: Code(s): R53.1 - Weakness Status: Acute Assessment and Plan: PT and OT to evaluate patient up to recliner chair for meals DS: Summary Hospital Course Reason for hospitalization: COPD exacerbation,hyponatremia Hospital Course: this is a 66-year-old female admitted to the hospital with COPD exacerbation patient had SOB for few days with some weakness patient is on a home oxygen at 2 L.? Patient was found to be hyponatremic which is acute on chronic hyponatremia noted chest x-ray revealed --Oxygen 2l nc exacerbation there is no pneumonia found patient has a past medical history of COPD hyperlipidemia hypertension was admitted to the hospital back in November of 2021 was sent home with a nebulizer and oxygen at that time.? patient condition has improved her sodium level has also improved. Spoke with her doctor Dr. Purvis concerning monitor her sodium level. They have agreed to monitor her sodium level she will discharge with repeat labs in 3 days with .results going to her primary care physician. The patient denies , CP, palpitation, extremity numbness, lightheadedness, dizziness, constipation, diarrhea, chills, or fever. Discharge instructions reviewed with patient, as well as provided in writing per nursing staff. The instructions also include specific and strict return/GO TO THE ER as well as f/u information. All questions have been answered, and the patient and/or family deny any further questions with discharge and discharge plan. Time Spent with Patient Time attestation: Total time spent providing and/or coordinating discharge services: Exam Narrative: GENERAL:Well-appearing, well-nourished, and in no acute distress. HEAD:Normocephalic, atraumatic. EYES: PERRLA and EOMI. ENT: Nares clear, no rhinorrhea or epistaxis. Mucous membranes moist. CHEST: coarse with crackles to auscultation. No
--- NOTE | 2022-02-24 11:57 | PC.NURSE ---
Pt discharged to home at 1130. Pt's spouse is here to pick her up. Discharge teaching on Medications, oxygen use and fluid restrictions as well as follow up doctor appointment in 1-2 weeks and [facility] om 02/27/22 to check sodium level. Pt and spouse verbalize understanding. Pt assisted to the car in by RN.
[2022-02-25 20:28] LABS: Osmolality, Urine 492 mOsm/kg (50-1200)
--- NOTE | 2022-02-26 13:40 | PC.NURSE ---
Unable to contact for discharge call back.
--- NOTE | 2022-02-26 13:52 | PC.NURSE ---
Pt returned discharge call back. Pt states she received and understood her discharge instructions. Pt states everything was terrific .
== END 2022-02-24 11:30 | disposition home or self-care (01) ==
LOC: CHSED 06:05 → CHS2ND 06:39
PROVIDERS: Nurse Practitioner Family; Admitting Provider Internal Medicine; Emergency Provider Emergency Medicine; PCP Family Medicine; Visit Provider Internal Medicine
DX: J44.1 Chronic obstructive pulmonary disease with (acute) exacerbation (principal); E87.1 Hypo-osmolality and hyponatremia; E78.5 Hyperlipidemia, unspecified; I10 Essential (primary) hypertension; N28.9 Disorder of kidney and ureter, unspecified; Z20.822 Contact with and (suspected) exposure to COVID-19; Z87.891 Personal history of nicotine dependence; Z79.82 Long term (current) use of aspirin
CPT/HCPCS: 36415; 71045; 80048; 80053; 83735; 83880; 83935; 84300; 84484; 85025; 85027; 85610; 85730; 87040; 87637; 93005; 94640; 96374; 96376; 97161; 99285; A9270; G0378; J2930

== ENCOUNTER 2022-02-25 21:05 | Emergency (ER) | payer MEDICARE, SELFPAY ==
--- NOTE | ~2022-02-25 | XR_ITS ---
XR chest 1V portable DATE: 02/25/2022 21:42 INDICATION: Increased shortness of breath and anxiety tonight. COPD. TECHNIQUE: Portable AP chest on 02/25/2022 at 2150 hours COMPARISON: 02/23/2022 portable AP chest at 0539 hours FINDINGS: Normal heart size. Aortic arch calcification. No hilar or mediastinal enlargement. The lungs are moderately hyperinflated. Minimal atelectasis is suggested at the lung bases. No pleura l effusion or pulmonary vascular congestion or pneumothorax. IMPRESSION: Bilateral hyperinflation Minimal atelectasis is suggested at the lung bases Aortic atherosclerosis Reviewed, dictated and finalized at location A. RUCTIONAL DESIGN TECHNOLOGIST
[2022-02-25 21:10] VITALS: BP 164/80; PULSE 85; RESP 18; TEMP 36.9; O2SAT 97
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
[2022-02-25 21:40] VITALS: PULSE 90; RESP 20; O2SAT 93
[2022-02-25 21:40] LABS: Basophils Absolute Auto 0.01 K/mm3 (0.00-0.10); Basophils Percent Auto 0.1 % (0.0-1.0); Eosinophils Absolute Auto 0.06 K/mm3 (0.02-0.50); Eosinophils Percent Auto 0.5 % (1.0-6.0); Hematocrit 33.8 % (35.0-42.0); Hemoglobin 11.6 g/dL (11.7-13.8); Immature Granulocyte Absolute 0.08 K/mm3 (0.00-0.00); Immature Granulocyte Percent A 0.7 % (0.0-0.0); Lymphocytes Absolute Auto 0.71 K/mm3 (1.10-4.50); Lymphocytes Percent Auto 6.3 % (18.0-42.0); Mean Corpuscular HGB Conc 34.3 g/dL (32.0-36.0); Mean Corpuscular Hemoglobin 31.8 pg (27.0-31.0); Mean Corpuscular Volume 92.6 fL (78.0-102.0); Monocytes Absolute Auto 0.96 K/mm3 (0.10-0.90); Monocytes Percent Auto 8.5 % (2.0-11.0); Neutrophils Absolute Auto 9.5 K/mm3 (1.7-7.2); Neutrophils Percent Auto 83.9 % (50.0-70.0); Platelet Count Result 319 K/mm3 (150-420); Red Blood Count 3.65 M/mm3 (4.20-5.40); Red Cell Distribution Width 13.2 % (11.6-14.4); White Blood Count 11.3 K/mm3 (4.8-10.8)
[2022-02-25] MEDS: methylPREDNISolone ACETATE 40 MG/ML VIAL 80 MG IM (21:40)
[2022-02-25] MEDS: IPRATROPIUM 0.5 MG/ALBUTEROL SULFATE 2.5 MG AMPUL.NEB 3 ML INHALATION (21:41)
[2022-02-25] MEDS: ALPRAZolam (*CRX) 0.5 MG TABLET PO (21:41)
[2022-02-25] MEDS: SODIUM CHLORIDE 0.9% 3 ML NEB FOR INHALATION (21:45)
[2022-02-25 21:47] VITALS: BP 150/89; PULSE 72; RESP 20; O2SAT 93
[2022-02-25 21:50] VITALS: PULSE 90; RESP 20; O2SAT 95
[2022-02-25 21:55] LABS: Alanine Aminotransferase 24 U/L (14-59); Albumin Level 3.7 g/dL (3.4-5.0); Alkaline Phosphatase 59 U/L (46-116); Anion Gap 2 mmol/L (8-16); Aspartate Amino Transferase 22 U/L (15-37); Bilirubin,Total 0.4 mg/dL (0.00-1.00); Blood Urea Nitrogen 13 mg/dL (7-18); Calcium 8.1 mg/dL (8.5-10.1); Carbon Dioxide 35 mmol/L (21-32); Chloride 84 mmol/L (98-108); Estimated CRCL calculation 94 ml/min; Estimated Glomerular Filt Rate > 60; Glucose 128 mg/dL (70-99); Osmolality Calculated 254 mOsm/kg (285-295); Potassium 3.8 mmol/L (3.5-5.1); Sodium 121 mmol/L (136-145); Total Protein 6.1 g/dL (6.4-8.2)
[2022-02-25 22:15] VITALS: BP 139/90; PULSE 88; RESP 20; O2SAT 92
[2022-02-25 22:43] VITALS: BP 140/90; PULSE 88; RESP 18; TEMP 37; O2SAT 92
== END 2022-02-25 22:56 | disposition home or self-care (01) ==
PROVIDERS: Emergency Provider Emergency Medicine; PCP Family Medicine
DX: J44.9 Chronic obstructive pulmonary disease, unspecified (principal); F41.9 Anxiety disorder, unspecified; I10 Essential (primary) hypertension; E78.5 Hyperlipidemia, unspecified; F17.210 Nicotine dependence, cigarettes, uncomplicated; Z99.81 Dependence on supplemental oxygen; Z79.51 Long term (current) use of inhaled steroids; Z79.82 Long term (current) use of aspirin
CPT/HCPCS: 36415; 71045; 80053; 85025; 96372; 99283; A9270; J1030

== ENCOUNTER 2022-02-27 09:40 | Outpatient (CLI) | payer MEDICARE, SELFPAY ==
[2022-02-27 10:42] LABS: Alanine Aminotransferase 28 U/L (14-59); Alkaline Phosphatase 62 U/L (46-116); Anion Gap 2 mmol/L (8-16); Aspartate Amino Transferase 24 U/L (15-37); Bilirubin,Total 0.7 mg/dL (0.00-1.00); Blood Urea Nitrogen 7 mg/dL (7-18); Calcium 8.6 mg/dL (8.5-10.1); Carbon Dioxide 37 mmol/L (21-32); Chloride 82 mmol/L (98-108); Estimated Glomerular Filt Rate > 60; Glucose 93 mg/dL (70-99); Osmolality Calculated 250 mOsm/kg (285-295); Potassium 3.6 mmol/L (3.5-5.1); Sodium 121 mmol/L (136-145); Total Protein 6.5 g/dL (6.4-8.2)
== END 2022-02-27 09:41 | disposition home or self-care (01) ==
LOC: CHSLAB 09:41
PROVIDERS: PCP Family Medicine; Visit Provider Nurse Practitioner
DX: E87.1 Hypo-osmolality and hyponatremia (principal)
CPT/HCPCS: 36415; 80053